=== PATIENT | male | born 1945 | race Caucasian/White ===

== ENCOUNTER 2018-06-10 13:35 | Inpatient (IN) | payer MEDICARE ==
[~2018-06-10] VITALS: Ht 167.6 cm; Wt 94.9 kg
[2018-06-10] MEDS: ALBUTEROL SULF 0.083% NEB SOLN 3 ML NEB NEB SCH ×2 (00:16→20:20)
--- OUTSIDE RECORDS SUMMARY | 2018-06-10 13:38 | XMS REPORT | Summary of Care ---
Author Author [facility] [place] Organization [facility] [place] Address Unknown Phone Unavailable Encounter HQ Maishar_amari(FIN) [id number] Date(s): 06/12/17 - 06/13/17 [facility] [place] [address] [address] [place] [id number] [phone] Vital Signs No data available for this section Problem List Condition Effective Dates Status Health Status Informant Allergy(Confirmed) Active Benign essential 09/07/14 Active hypertension1 Broken 02/03/15 - 02/13/15 Resolved leg(Confirmed)2 Clogged artery Resolved (heart)(Confirmed) Hyperlipidemia3 09/07/14 Active Insomnia4 09/07/14 Active Obesity(Confirmed) Active Pharyngitis(Confirme < 04/08/16 Resolved d) Tobacco dependence 09/07/14 Active syndrome5 Left trigger Resolved finger(Confirmed) 1Data migrated from [employer] on 11/02/14. 2Right leg 3Data migrated from [employer] on 11/02/14. 4Data migrated from [employer] on 11/02/14. 5Data migrated from [employer] on 11/02/14. Allergies, Adverse Reactions, Alerts Substance Reaction Severity Status iodine1 Active 1Data migrated from [employer] on11/03/14. Originally documented as IODINE. Medications atorvastatin 10 mg oral tablet See Instructions, TAKE 1 TABLET BY MOUTH AT BEDTIME, # 90 tab, 0 Refill(s), [place]: [place] [id number] Start Date: 06/12/17 Status: Ordered trazodone 50 mg oral tablet See Instructions, TAKE 1 TABLET BY MOUTH BEDTIME, # 30 tab, 1 Refill(s), Pharmac y: [facility] [id number] Start Date: 06/12/17 Stop Date: 08/20/17 Status: Completed trazodone 50 mg oral tablet See Instructions, # 30 tab, Refill(s) 3, TAKE 1 TABLET BY MOUTH AT BEDTIME, [place]id: [place] [id number] Start Date: 08/20/17 Status: Ordered Results No data available for this section Immunizations Given and Recorded Vaccine Date Status Refusal Reason influenza virus vaccine, inactivated1 02/20/15 Given 1Result Comment: [facility]: [id number] Procedures Procedure Date Related Diagnosis Body Site Status Appendectomy Completed Cholecystectomy Completed Hernia repair Completed Social History Social History Type Response Substance Abuse Use: None. Alcohol Current, Type Beer. Frequency: 1-2 times per week. Smoking Status Light tobacco smoker; Type: Cigars; Exposure to Tobacco Smoke None; Cigarette Smoking Last 365 Days Yes; Reg Smoking Cessation Counseling No; Tobacco use per day: 1; entered on: 07/30/17 Assessment and Plan No data available for this section
--- OUTSIDE RECORDS SUMMARY | 2018-06-10 13:38 | XMS REPORT | Summary of Care ---
Author Organization Unknown Address Unknown Phone Unavailable Encounter HQ Encntr_alias(FIN) [id number] Date(s): 09/07/14 - 09/07/14 [facility] [address] [address] [place] [phone] Discharge Disposition: Home Physician Attending: Janet Valencia MD Vital Signs No data available for this section Problem List No data available for this section Allergies, Adverse Reactions, Alerts No data available for this section Medications No data available for this section Results No data available for this section Immunizations No data available for this section Procedures No data available for this section Social History No data available for this section Assessment and Plan No data available for this section
--- OUTSIDE RECORDS SUMMARY | 2018-06-10 13:38 | XMS REPORT | Summary of Care ---
Author Author [facility] [place] Organization [facility] [place] Address Unknown Phone Unavailable Encounter HQ Luisitontr_amari(FIN) [id number] Date(s): 03/11/17 - 03/12/17 [facility] [place] [address] [address] [place] [phone] Vital Signs No data available for this section Problem List Condition Effective Dates Status Health Status Informant Allergy(Confirmed) Active Benign essential 09/07/14 Active hypertension1 Broken 02/03/15 - 02/13/15 Resolved leg(Confirmed)2 Clogged artery Resolved (heart)(Confirmed) Hyperlipidemia3 09/07/14 Active Insomnia4 09/07/14 Active Morbid obesity5 09/07/14 Active Pharyngitis(Confirme < 04/08/16 Resolved d) Tobacco dependence 09/07/14 Active syndrome6 Left trigger Active finger(Confirmed) 1Data migrated from [employer] on 11/02/14. 2Right leg 3Data migrated from [employer] on 11/02/14. 4Data migrated from [employer] on 11/02/14. 5Data migrated from [employer] on 11/02/14. 6Data migrated from [employer] on 11/02/14. Allergies, Adverse Reactions, Alerts Substance Reaction Severity Status iodine1 Active 1Data migrated from [employer] on11/03/14. Originally documented as IODINE. Medications trazodone 50 mg oral tablet See Instructions, # 30 tab, Refill(s) 1, TAKE 1 TABLET BY MOUTH BEDTIME, Pharmac y: [facility] [id number] Start Date: 03/11/17 Status: Ordered Results No data available for this section Immunizations Given and Recorded Vaccine Date Status Refusal Reason influenza virus vaccine, inactivated1 02/20/15 Given 1Result Comment: [facility]: [id number] Procedures Procedure Date Related Diagnosis Body Site Appendectomy Cholecystectomy Hernia repair Social History Social History Type Response Substance Abuse Use: None. Alcohol Current, Type Beer. Frequency: 1-2 times per week. Smoking Status Light tobacco smoker; Type: Cigars; Exposure to Tobacco Smoke None; Cigarette Smoking Last 365 Days Yes; Reg Smoking Cessation Counseling No; Tobacco use per day: 1; Assessment and Plan No data available for this section
--- OUTSIDE RECORDS SUMMARY | 2018-06-10 13:38 | XMS REPORT | Summary of Care ---
Author Author [facility] [place] Organization [facility] [place] Address Unknown Phone Unavailable Encounter HQ Maishar_amari(FIN) [id number] Date(s): 06/04/17 - 06/04/17 [facility] [place] [address] [address] [place] [id number] [phone] Discharge Disposition: Home or Self Care Attending Physician: Janet Valencia MD Vital Signs Most recent to 1 oldest [Reference Range]: Height 165.1 cm (06/04/17 10:00 AM) Temperature Oral 97.7 DegF [96.4-99.1 DegF] (06/04/17 10:00 AM) Blood Pressure 144/87 mmHg [90-140/60-90 mmHg] *HI* (06/04/17 10:00 AM) Respiratory Rate 14 BRMIN [14-20 BRMIN] (06/04/17 10:00 AM) Peripheral Pulse 71 bpm Rate [60-100 bpm] (06/04/17 10:00 AM) Weight 96.136 kg (06/04/17 10:00 AM) Body Mass Index 35.27 m2 (06/04/17 10:00 AM) Problem List Condition Effective Dates Status Health [...] [employer] on 11/02/14. 5Data migrated from [employer] on 11/02/14. Allergies, Adverse Reactions, Alerts Substance Reaction Severity Status iodine1 Active 1Data migrated from [employer] on11/03/14. Originally documented as IODINE. Medications Vitamin C Daily, 0 Refill(s) Start Date: 06/04/17 Status: Ordered Results No data available for this section Immunizations Given and Recorded Vaccine Date Status Refusal Reason influenza virus vaccine, inactivated1 02/20/15 Given 1Result Comment: [facility]: [id number] Procedures Procedure Date Related Diagnosis Body Site [...]
--- OUTSIDE RECORDS SUMMARY | 2018-06-10 13:38 | XMS REPORT | Summary of Care ---
Author Author ROMERO FOX M.D. Organization Unknown Address Unknown Phone Unavailable Care Team Providers Care Shredder Tender Name Role Phone ROMERO FOX M.D. Unavailable Unavailable Functional Status Name Dates Details Functional status health issues are not documented Status: Name Dates Details Cognitive status health issues are not documented Status: Problems Name Dates Details Trigger finger, left ring finger (727.03, M65.342) Status: Active Sprain of anterior talofibular ligament, right, initial encounter (845.09, S93.491A) Status: Active Medications Name Dates Details Medications not documented Allergies and Adverse Reactions Name Dates Details Allergy history not documented Status: Procedures Procedure Dates Details Procedures not documented Immunization Name Dates Details Immunizations not documented Social History Name Dates Details Unknown if ever smoked Vital Signs Date Test Result Details No Known Vitals to report Results Date Description Value Details Results not documented Plan of Care Name Dates Details Planned Observations Planned Goals not documented Interventions Provided Labs/Procedures/Imaging* [U] XRAY ANKLE MIN 3 VWS RIGHT [id number]; Done: 02 Apr 2016 * [U] XRAY HAND MIN 3 VWS LEFT [id number]; Done: 02 Apr 2016 Instructions Name Dates Details Instructions not documented Encounters Appointment; ROMERO FOX M.D. Encounter Diagnosis: Problem not documented On: 02-Apr-2016 13:30
--- OUTSIDE RECORDS SUMMARY | 2018-06-10 13:38 | XMS REPORT | Summary of Care ---
Author Author [facility]patient [facility] Organization [facility] Address Unknown Phone Unavailable Encounter HQ Encntr_alias(FIN) [id number] Date(s): 02/27/15 - 02/27/15 [facility] Outpatient [facility] [address] [address] [place] [phone] Discharge Disposition: Home Attending Physician: Janet Valencia MD Vital Signs No data available for this section Problem List Condition Effective Dates Status Health Status Informant Allergy(Confirmed) Active Benign essential 09/07/14 Active hypertension1 Clogged artery Resolved (heart)(Confirmed) Hyperlipidemia2 09/07/14 Active Insomnia3 09/07/14 Active Morbid obesity4 09/07/14 Active Tobacco dependence 09/07/14 Active syndrome5 1Data migrated from [employer] on 11/02/14. 2Data migrated from [employer] on 11/02/14. 3Data migrated from [employer] on 11/02/14. 4Data migrated from [employer] on 11/02/14. 5Data migrated from [employer] on 11/02/14. Allergies, Adverse Reactions, Alerts Substance Reaction Severity Status iodine1 Active 1Data migrated from [employer] on11/03/14. Originally documented as IODINE. Medications No data available for this section Results No data available for this section Immunizations Vaccine Date Refusal Reason influenza virus vaccine, inactivated1 02/20/15 1Result Comment: [facility]: [id number] Procedures Procedure Date Related Diagnosis Body Site Appendectomy Cholecystectomy Hernia repair Social History Social History Type Response Substance Abuse Use: None. Alcohol Current, Type Beer. Frequency: 1-2 times per week. Smoking Status Light tobacco smoker; Type: Cigars; Tobacco use per day: 1; Exposure to Tobacco Smoke None; Cigarette Smoking Last 365 Days Yes; Reg Smoking Cessation Counseling No Assessment and Plan No data available for this section
--- OUTSIDE RECORDS SUMMARY | 2018-06-10 13:38 | XMS REPORT | Summary of Care ---
Author Author [facility] [place] Organization [facility] [place] Address Unknown Phone Unavailable Encounter HQ Maishar_amari(FIN) [id number] Date(s): 07/30/17 - 07/30/17 [facility] [place] [address] [address] [place] [id number] [phone] Discharge Disposition: Home or Self Care Attending Physician: Janet Valencia MD Vital Signs Most recent to 1 oldest [Reference Range]: Height 167.64 cm (07/30/17 3:32 PM) Temperature Oral 98.0 DegF [96.4-99.1 DegF] (07/30/17 3:32 PM) Blood Pressure 144/82 mmHg [90-140/60-90 mmHg] *HI* (07/30/17 3:32 PM) Respiratory Rate 12 BRMIN [14-20 BRMIN] *LOW* (07/30/17 3:32 PM) Peripheral Pulse 61 bpm Rate [60-100 bpm] (07/30/17 3:32 PM) Weight 95.909 kg (07/30/17 3:32 PM) Body Mass Index 34.13 m2 (07/30/17 3:32 PM) Problem List Condition Effective Dates Status Health [...] [employer] on 11/02/14. 5Data migrated from [employer] on 11/02/14. Allergies, Adverse Reactions, Alerts Substance Reaction Severity Status iodine1 Active 1Data migrated from [employer] on11/03/14. Originally documented as IODINE. Medications Cipro 500 mg oral tablet 500 mg=1 tab, PO, Q12H, X 10 day, # 20 tab, 0 Refill(s), [facility] [place] [id number] Start Date: 07/30/17 Stop Date: 08/09/17 Status: Completed Results No data available for this section Immunizations Given and Recorded Vaccine Date Status Refusal Reason influenza virus vaccine, inactivated1 02/20/15 Given 1Result Comment: [facility]: [id number] Procedures Procedure Date Related Diagnosis Body Site [...]
--- OUTSIDE RECORDS SUMMARY | 2018-06-10 13:38 | XMS REPORT | Continuity of Care Document ---
Author Author [facility] Interface Address Unknown Phone Unavailable Problems Problem Status Onset Date Classification Date Reported Comments Source Pharyngitis Resolved 04/08/2016 Problem 11/05/2017 [facility] M25.561 - PAIN IN RIGHT KNEE Active 02/22/2015 [facility] Broken leg<sup>2</sup> Resolved 02/03/2015 Problem 11/05/2017 Right leg Medical [facility], [facility] Benign essential hypertension<sup>1</sup> Active 09/07/2014 Problem 11/05/2017 Data migrated from [employer] on 11/02/14. Medical [facility] Hyperlipidemia<sup>3</sup> Active 09/07/2014 Problem 11/05/2017 Data migrated from [employer] on 11/02/14. [facility] Insomnia<sup>4</sup> Active 09/07/2014 Problem 11/05/2017 Data migrated from [employer] on 11/02/14. [facility] Tobacco dependence syndrome<sup>5</sup> Active 09/07/2014 Problem 11/05/2017 Data migrated from [employer] on 11/02/14. [facility] Morbid obesity<sup>5</sup> Active 09/07/2014 Problem 03/15/2017 Data migrated from [employer] on 11/02/14. [facility] Tobacco dependence syndrome<sup>6</sup> Active 09/07/2014 Problem 03/15/2017 Data migrated from [employer] on 11/02/14. Medical [facility] Hyperlipidemia<sup>2</sup> Active 09/07/2014 Problem 03/02/2015 Data migrated from [employer] on 11/02/14. [facility] Insomnia<sup>3</sup> Active 09/07/2014 Problem 03/02/2015 Data migrated from [employer] on 11/02/14. [facility] Morbid obesity<sup>4</sup> Active 09/07/2014 Problem 03/02/2015 Data migrated from [employer] on 11/02/14. [facility] Allergy Active Problem 11/05/2017 [facility] Group, [facility] Clogged artery (<span ID="[id number]">Confirmed</span>) Resolved Problem 11/05/2017 [facility], [facility] Obesity Active Problem 11/05/2017 [facility] Group Left trigger finger Resolved Problem 11/05/2017 [facility] Right ankle pain Active Problem 03/25/2016 [facility] Right foot pain Active Problem 03/25/2016 [facility] Medications Medication Details Route Status Patient Instructions Ordering Provider Order Date Source Trazodone Hydrochloride 50 MG Oral Tablet See Instructions, # 30 tab, Refill(s) 3, TAKE 1 TABLET BY MOUTH AT BEDTIME, Pharmacy: [facility] [id number] Active 08/21/2017 [facility] Ciprofloxacin 500 MG Oral Tablet [Cipro] 500 mg=1 tab, PO, Q12H, X 10 day, # 20 tab, 0 Refill(s), Pharmacy: [facility] [id number] No Longer Active 07/30/2017 [facility] atorvastatin 10 mg oral tablet See Instructions, TAKE 1 TABLET BY MOUTH AT BEDTIME, # 90 tab, 0 Refill(s), Pharmacy: [facility] [id number] Active 06/12/2017 [facility] Trazodone Hydrochloride 50 MG Oral Tablet See Instructions, TAKE 1 TABLET BY MOUTH BEDTIME, # 30 tab, 1 Refill(s), Pharmacy: [facility] [id number] No Longer Active 06/12/2017 [facility] Vitamin C Daily, 0 Refill(s) Active 06/04/2017 [facility] Trazodone Hydrochloride 50 MG Oral Tablet See Instructions, # 30 tab, Refill(s) 1, TAKE 1 TABLET BY MOUTH BEDTIME, Pharmacy: [facility] [id number] Active 03/11/2017 [facility] Allergies, Adverse Reactions, Alerts Substance Category Reaction Severity Reaction type Status Date Reported Comments Source iodine<sup>1</sup> Assertion Drug allergy Active 09/07/2014 Data migrated from [employer] on11/03/14. Originally documented as IODINE. [facility] Immunizations Immunization Date Given Site Status Last Updated Comments Source influenza virus vaccine, inactivated<sup>1</sup> 02/20/2015 Right Deltoid completed David Result Comment: [facility]: [id number] Medical Group, JACQUELINE Cervantes Results Order Name Results Value Reference Range Date Interpretation Comments Source Foot 2 views DX Foot 2 views DX EXAMINATION: 1. Right ankle 2 views 2. Right foot 2 views HISTORY: Right ankle and foot pain; right heel spur FINDINGS: 2 view nonweightbearing examination of the right ankle and 2 view nonweightbearing examination of the right foot is performed without comparison. There are no acute fractures or dislocations. There is an old healed fracture of the distal right fibular shaft. The ankle mortise is symmetric. There is no widening of the distal tibiofibular syndesmosis. There is a type II accessory navicular. There is mild osteoarthritis at the 1st metatarsophalangeal joint. Mild dorsal spurring is noted along the talonavicular joint. The remaining joint spaces are normal There is no ankle effusion. There is a plantar calcaneal spur. There is heterotopic ossification at the Achilles insertion. There are no radiopaque foreign bodies identified. IMPRESSION: 1. No acute fracture or dislocation of the right ankle or foot. 2. Old healed distal right fibular shaft fracture. 3. 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 4. Right plantar calcaneal spur. 03/22/2016 - - Read by: Crescencio Mcmahon MD Dictated Date/time: 03/22/16 13:24 Electronically Signed by: Crescencio Mcmahon MD 03/22/16 13:26 FINAL REPORT [facility] Ankle 2 views DX Ankle 2 views DX EXAMINATION: 1. Right ankle 2 views 2. Right foot 2 views HISTORY: Right ankle and foot pain; right heel spur FINDINGS: 2 view nonweightbearing examination of the right ankle and 2 view nonweightbearing examination of the right foot is performed without comparison. There are no acute fractures or dislocations. There is an old healed fracture of the distal right fibular shaft. The ankle mortise is symmetric. There is no widening of the distal tibiofibular syndesmosis. There is a type II accessory navicular. There is mild osteoarthritis at the 1st metatarsophalangeal joint. Mild dorsal spurring is noted along the talonavicular joint. The remaining joint spaces are normal There is no ankle effusion. There is a plantar calcaneal spur. There is heterotopic ossification at the Achilles insertion. There are no radiopaque foreign bodies identified. IMPRESSION: 1. No acute fracture or dislocation of the right ankle or foot. 2. Old healed distal right fibular shaft fracture. 3. 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 4. Right plantar calcaneal spur. 03/22/2016 - - Read by: Crescencio Mcmahon MD Dictated Date/time: 03/22/16 13:24 Electronically Signed by: Crescencio Mcmahon MD 03/22/16 13:26 FINAL REPORT [facility]erv[facility] Knee wo contrast MRI Knee wo contrast MRI EXAMINATION: MRI of the right knee without contrast. HISTORY: Right knee pain; tibial fracture FINDINGS: There are no radiographs available for review. Multiplanar, multisequence magnetic resonance imaging of the right knee is performed with an extremity coil without contrast. Menisci: Medial: There is a radial tear at the posterior root of the medial meniscus. There is also horizontal intrameniscal hyperintense signal was extends to the posteromedial meniscocapsular junction, but does not extend to the articular surface, which may represent a horizontal component from the radial tear extending from the posterior root or intrameniscal degeneration. Lateral: The anterior horn, body, and posterior horn are intact. Ligaments: The cruciate and collateral ligaments are intact. Extensor mechanism: The extensor mechanism is intact. Muscles: There is edema within the popliteus muscle and muscles subjacent to the proximal medial tibia. Cartilage: Within the medial compartment, there is no focal chondrosis. Within the lateral and patellofemoral compartments, there is no focal chondrosis or subchondral marrow edema. Bone: There is a well-defined, nondisplaced, hypointense subchondral insufficiency fracture of the medial tibial plateau measuring approximately 1.6 x 1.4 cm in left to right and anteroposterior dimensions respectively with surrounding marrow edema. There are no fractures of the visualized distal femur, visualized proximal fibula, or patella. Soft tissues: There is subcutaneous edema superficial to the patella and patellar tendon and soft tissue edema along the anteromedial aspect of the proximal medial tibia. There is a trace knee effusion with tiny Snider's cyst. IMPRESSION: 1. Radial tear at the posterior root of the right knee medial meniscus with horizontal intrameniscal hyperintense signal extending to the posteromedial meniscocapsular junction, but not to the articular surface which may represent a horizontal component from the radial tear extending from the posterior root or intrameniscal degeneration. 2. Well-defined, nondisplaced, hypointense subchondral insufficiency fracture of the right medial tibial plateau with surrounding marrow edema. 3. Edema within the right popliteus muscle and muscle subjacent to the proximal medial tibia, likely reactive. 4. Trace right knee effusion with tiny right knee Snider's cyst. 5. Subcutaneous edema superficial to the patella and patellar tendon. 6. Intact right knee cruciate and collateral ligaments without right knee chondrosis. 02/27/2015 - - Read by: Crescencio Mcmahon MD Dictated Date/time: 02/27/15 13:23 Electronically Signed by: Crescencio Mcmahon MD 02/27/15 13:40 [facility] Vital Signs Vital Sign Value Date Comments Source Height 167.64 cm 07/30/2017 Medical Group Respitory Rate 12 07/30/2017 Medical Group BMI Calculated 34.13 07/30/2017 Medical Group Temperature Oral (F) 98.0 F 07/30/2017 Medical Group Weight 95.909 07/30/2017 Medical Group Heart Rate 61 07/30/2017 Medical Group Systolic (mm Hg) 144 07/30/2017 Medical Group Diastolic (mm Hg) 82 07/30/2017 Medical [facility] Weight 96.136 06/04/2017 Medical Group Height 165.1 cm 06/04/2017 Medical Group BMI Calculated 35.27 06/04/2017 Medical Group Systolic (mm Hg) 144 06/04/2017 [facility] Group Diastolic (mm Hg) 87 06/04/2017 Medical Group Heart Rate 71 06/04/2017 Medical Group Temperature Oral (F) 97.7 F 06/04/2017 Medical Group Respitory Rate 14 06/04/2017 Medical Group Encounters Location Location Details Encounter Type Encounter Number Reason For Visit Attending Provider ADM Date DC Date Status Source [facility] [id number] Onofre Zuniga 09/07/2014 09/08/2014 MH [facility] Outpatient [id number] ONOFRE ZUNIGA 10/31/2014 Active [facility] Out[facility] [id number] ONOFRE ZUNIGA 10/31/2014 [facility] [id number] ONOFRE ZUNIGA 02/20/2015 Active [facility] [id number] Onofre Zuniga 02/27/2015 02/28/2015 [facility] Outpatient [id number] ONOFRE ZUNIGA 04/25/2015 Active [facility] [id number] ONOFRE ZUNIGA 03/22/2016 Active [facility] [id number] Onofre Zuniga 03/22/2016 03/23/2016 [facility] Outpatient [id number] ONOFRE ZUNIGA 04/08/2016 Active [facility] [id number] ONOFRE ZUNIGA 09/17/2016 Active [facility] [id number] ONOFRE ZUNIGA 01/24/2017 Active [facility] Phone Message [id number] 03/11/2017 03/13/2017 Medical Group Outpatient [id number] ONOFRE ZUNIGA 06/04/2017 Active [facility] Outpatient [id number] Onofre Zuniga 06/04/2017 06/05/2017 Medical Group [facility] [place] Phone Message [id number] 06/12/2017 06/14/2017 Medical Group Outpatient [id number] ONOFRE ZUNIGA 07/30/2017 Active [facility] Outpatient [id number] Onofre Zuniga 07/30/2017 07/31/2017 Medical Group Outpatient [id number] ONOFRE ZUNIGA 12/02/2017 Active [facility] Outpatient [id number] ONOFRE ZUNIGA 03/11/2018 Active [facility] Outpatient [id number] ONOFRE ZUNIGA 03/30/2018 Active [facility] Procedures Procedure Code Date Perfomer Comments Source Appendectomy [id number] Medical Group Cholecystectomy [id number] Medical [facility] Hernia repair [id number] [facility] Appendectomy [id number] [facility] Cholecystectomy [id number] JACQUELINE Cervantes Hernia repair [id number] JACQUELINE Cervantes
--- OUTSIDE RECORDS SUMMARY | 2018-06-10 13:38 | XMS REPORT | Summary of Care ---
Author Author [facility] Organization [facility] Address Unknown Phone Unavailable Encounter HQ Jac_amari(FIN) [id number] Date(s): 03/22/16 - 03/22/16 [facility] [address], [place] [phone]- [phone] Discharge Disposition: Home or Self Care Attending Physician: Janet Valencia MD Vital Signs No data available for this section Problem List Condition Effective Dates Status Health Status Informant Allergy(Confirmed) Active Right ankle Active pain(Confirmed) Benign essential 09/07/14 Active hypertension1 Broken 02/03/15 - 02/13/15 Resolved leg(Confirmed)2 Clogged artery Resolved (heart)(Confirmed) Right foot Active pain(Confirmed) Hyperlipidemia3 09/07/14 Active Insomnia4 09/07/14 Active Morbid obesity5 09/07/14 Active Tobacco dependence 09/07/14 Active syndrome6 Left trigger [...] virus vaccine, inactivated1 02/20/15 Given 1Result Comment: [facility]: [id number] Procedures Procedure Date Related Diagnosis Body Site [...]
[2018-06-10] MEDS ORDERED: LEVALBUTEROL HCL SOLN NEBU 1.25 MG/3 ML NEB INH ONE (14:30)
[2018-06-10] MEDS ORDERED: METHYLPREDNISOLONE SOD SUCC 125 MG/2ML VIAL IV ONE (14:30)
[2018-06-10] MEDS ORDERED: ACETAMINOPHEN/CODEINE ELIX 120-12 MG/5 ML UDC PO NR (14:30)
[2018-06-10] MEDS ORDERED: IPRATROPIUM BROMIDE 0.02% 2.5 ML NEB NEB ONE (14:30)
[2018-06-10] MEDS ORDERED: ASPIRIN 81 MG CHEW TAB PO ONE ×2 (14:30→17:30)
[2018-06-10] MEDS ORDERED: CEFTRIAXONE SOD 1 GM/NS 50 ML 50 ML IV NR (14:30)
--- NOTE | 2018-06-10 14:52 | NUR ---
CALLED RESPIRATORY FOR NEB TXS
[2018-06-10 15:01] LABS: BASOPHILS % 0.7 % (0.0-1.0); EOSINOPHILS # (AUTO) 0.2 (0.0-0.4); EOSINOPHILS % 2.5 % (0.0-6.0); HEMOGLOBIN 17.8 g/dL (14.0-18.0); LYMPHOCYTES # (AUTO) 1.3 (1.0-3.2); LYMPHOCYTES % 21.5 % (18.0-39.1); MEAN CORPUSCULAR HEMOGLOBIN 32.2 pg (28-32); MEAN CORPUSCULAR HGB CONC 34.2 g/dL (31-35); MONOCYTES # (AUTO) 0.4 (0.2-0.8); MONOCYTES % 7.5 % (4.4-11.3); NEUTROPHILS % 67.6 % (38.7-80.0); PLATELET COUNT 160 x10e3/uL (140-360); RED BLOOD COUNT 5.53 x10e6/uL (4.3-5.7); RED CELL DISTRIBUTION WIDTH 12.4 % (11.7-14.4)
[2018-06-10 15:10] LABS: INR 0.94; PROTHROMBIN TIME 13.4 seconds (11.9-14.5)
[2018-06-10 15:11] LABS: PARTIAL THROMBOPLASTIN TIME 36.5 seconds (23.8-35.5)
[2018-06-10 15:18] LABS: ALANINE AMINOTRANSFERASE 24 IU/L (0-55); ALBUMIN 4.1 g/dL (3.5-5.0); ALBUMIN/GLOBULIN RATIO 1.5 (0.8-2.0); ALKALINE PHOSPHATASE 68 IU/L (40-150); ANION GAP 16.1 mmol/L (8-16); BLOOD UREA NITROGEN 18 mg/dL (7-26); BUN/CREATININE RATIO 19 (6-25); CALCIUM 9.5 mg/dL (8.4-10.2); CARBON DIOXIDE 24 mmol/L (22-29); CHLORIDE 103 mmol/L (98-107); CREATINE KINASE 38 IU/L (30-200); CREATININE, SERUM 0.96 mg/dL (0.72-1.25); EST GLOMERULAR FILTRATION RATE > 60 ML/MIN (60-); GLUCOSE 115 mg/dL (74-118); POTASSIUM 4.1 mmol/L (3.5-5.1); SODIUM 139 mmol/L (136-145)
[2018-06-10 15:36] LABS: CLARITY,URINE CLEAR (CLEAR); COLOR,URINE YELLOW (YELLOW)
[2018-06-10 15:37] LABS: BILIRUBIN,URINE NEGATIVE (NEGATIVE); KETONES,URINE NEGATIVE (NEGATIVE); LEUKOCYTE ESTERASE ,URINE NEGATIVE (NEGATIVE); NITRITE,URINE NEGATIVE (NEGATIVE); PROTEIN,URINE DIPSTICK 2+ (NEGATIVE); URINE UROBILINOGEN 0.2 mg/dL (0.2 - 1)
[2018-06-10 15:56] LABS: AMORPHOUS SEDIMENT,URINE FEW (FEW); BACTERIA,URINE MODERATE /HPF; EPITHELIAL CELLS,URINE MODERATE /LPF; MUCUS,URINE FEW (RARE)
[2018-06-10] MEDS ORDERED: ASPIR 8181 MG PO (16:25)
[2018-06-10] MEDS ORDERED: TRAZODONE HCL50 MG PO (16:25)
[2018-06-10] MEDS ORDERED: ATORVASTATIN (16:25)
[2018-06-10] MEDS ORDERED: STOOL SOFTENER PO (16:25)
[2018-06-10] MEDS ORDERED: VITAMIN C (16:25)
[2018-06-10] MEDS ORDERED: VITAMIN E (16:25)
[2018-06-10] MEDS ORDERED: VITAMIN D (16:25)
--- NOTE | 2018-06-10 16:34 | NUR ---
PATIENT DOES NOT HAVE HIS MED LIST WITH HIM BUT HE KNEW THE NAMES OF HIS MEDS BUT NOT THE DOSAGES. I ENTERED THEM IN RECONCILE MEDS THE BEST I COULD. PT SAID HE TAKES A BLOOD PRESSURE PILL THAT STARTS WITH AN "H" BUT COULDN'T REMEMBER THE NAME.
--- NOTE | 2018-06-10 16:49 | Diagnostic Imaging Report ---
EXAM: CHEST SINGLE (PORTABLE), AP Portable DATE: 06/10/2018 Time stamp on exam: 4:10 PM INDICATION: Chest pain with dyspnea COMPARISON: None FINDINGS: LINES/TUBES: None LUNGS: Stranding density in the right lower lobe compatible with pneumonia PLEURA: No effusions or pneumothorax. HEART AND MEDIASTINUM: Normal size and contour. BONES AND SOFT TISSUES: No acute findings. Degenerative changes at both AC joints. IMPRESSION: Right lower lobe pneumonia Signed by: Dr. Shane Lopez DO on 06/10/2018 4:45 PM
[2018-06-10] MEDS ORDERED: CEFTRIAXONE SOD 1 GRAM/0.9% SOD CHL 50ML BAG IV SCH (17:30)
[2018-06-10] MEDS ORDERED: ALBUTEROL SULF 0.083% NEB SOLN 3 ML NEB NEB SCH (17:30)
--- OUTSIDE RECORDS SUMMARY | 2018-06-10 17:32 | XMS REPORT ---
Author Author [facility] Address Unknown Phone Unavailable Care Team Providers Care Solar Hot Water Installer Name Role Phone Coby HANKINS Unavailable Unavailable Problems This patient has no known problems. Allergies, Adverse Reactions, Alerts This patient has no known allergies or adverse reactions. Medications This patient has no known medications. Results Test Description Test Time Test Comments Text Results Atomic Results Result Comments CHEST SINGLE (PORTABLE) 2018-06-10 16:44:00 [place] [address] Patient Name: REY KAISER MR #: [id number] : 1945 Age/Sex: 73/M Req #: [id number] Adm Physician: Ordered by: GUERRERO HANKINS MD Report #: [id number] Location: ER Room/Bed: Procedure: [id number] DX/CHEST SINGLE (PORTABLE) Exam Date: Exam Time: REPORT STATUS: Signed EXAM: CHEST SINGLE (PORTABLE), AP Portable DATE: 06/10/2018 T hari stamp on exam: 4:10 PM INDICATION: Chest pain with dyspnea COMPARISON: None FINDINGS: LINES/TUBES: None LUNGS: Stranding density in the right lower lobe compatible with pneumonia PLEURA: No effusions or pneumothorax. HEART AND MEDIASTINUM: Normal size and contour. BONES AND SOFT TISSUES: No acute findings. Degenerative changes at both AC joints. IMPRESSION: Right lower lobe pneumonia Signed by: Dr. Berna Lopez DO on 06/10/2018 4:45 PM Dictated By: BERNA LOPEZ DO [id number] Transcribed By: JASMINA on 06/10/18 [id number] COPY TO: GUERRERO HANKINS MD
[2018-06-10] MEDS ORDERED: IPRATROPIUM BROMIDE 0.02% 2.5 ML NEB NEB SCH (18:00)
--- NOTE | 2018-06-10 18:28 | NUR ---
HANDOFF REPORT REC'D FROM ER NURSE, EMELY PUENTE RN.
--- NOTE | 2018-06-10 18:29 | NUR ---
REPORT CALLED TO CHRISTINE PIRES FOR ADMIT TO ROOM 210. SHE ASKED IF WE COULD BRING THE PATIENT AT 7:15 PM
[2018-06-10] MEDS: SODIUM CHLORIDE 0.9% 1000ML 1,000 ML IV SCH (18:43)
[2018-06-10] MEDS: CEFTRIAXONE SOD 1 GM/NS 50 ML 50 ML IV SCH (18:44)
[2018-06-10] MEDS: AZITHROMYCIN 500MG/NS 250 ML 250 ML IV SCH (18:44)
[2018-06-10] MEDS: IPRATROPIUM BROMIDE 0.02% 2.5 ML NEB NEB SCH (20:20)
--- NOTE | 2018-06-10 20:30 | NUR ---
received pt from er to room 210, AAOx4, resp even and unlabored, on O2 at 2L via NC, no c/o pain or discomfort, skin intact, uses cane for ambulation at times, able to verbalize needs, bed in lowest and locked position, bed alarm on, call light in reach
[2018-06-10 20:41] VITALS: BP 171/79
--- NOTE | 2018-06-10 21:00 | NUR ---
order to place pt on teletypesetter monitor clarified with yard warehouse worker and ER, pt to only have bedside continuous pulse ox, Dr. Magallon called and message left with answering service.
[2018-06-10 23:52] VITALS: BP 125/63
[2018-06-11] VITALS (7 sets, daily range): BP systolic 114–184; BP diastolic 57–84
[2018-06-11] MEDS: IPRATROPIUM BROMIDE 0.02% 2.5 ML NEB NEB SCH ×4 (03:28→19:49)
[2018-06-11] MEDS: ALBUTEROL SULF 0.083% NEB SOLN 3 ML NEB NEB SCH ×5 (03:28→19:49)
[2018-06-11] MEDS ORDERED: CLONIDINE HCL 0.1 MG TAB PO PRN (03:45)
[2018-06-11] MEDS ORDERED: TRAZODONE HCL 50 MG TAB PO PRN (04:30)
--- NOTE | 2018-06-11 04:45 | NUR ---
Dr. Naun mathis, no order for telemetry
[2018-06-11 07:48] LABS: CREATINE KINASE 35 IU/L (30-200)
[2018-06-11] MEDS: GUAIFENESIN/DEXTROMETHORPHAN LIQD 5 ML UDC NG PRN ×2 (08:00→17:45)
[2018-06-11] MEDS: SODIUM CHLORIDE 0.9% 1000ML 1,000 ML IV SCH ×3 (08:01→23:21)
[2018-06-11] MEDS: ASPIRIN 81 MG CHEW TAB PO SCH (08:01)
--- NOTE | 2018-06-11 14:50 | NUR ---
CASE MANAGEMENT ASSESSMENT Motor Pool Driver to bedside to discuss plan of care with patient/family. CM/SW role and care transitions discussed. Anticipated discharge plan discussed along with duration of care. CM/SW discussed patients right to make decisions in care. CM/SW work hours given. Patient lives: with nephew Armen Lala Admit/Transfer: thru ED Hospital/ER visits since last admit: 1 year ago for trigger finger repair. no ED visits since then POA/Emergency contact: Armen Lala [phone] Current/Previous Home Health: none PCP/Follow-up Care: Dr. Janet Valencia - pt advised to follow up with MD within 7 days of discharge. Pt states he will call and schedule an appointment Current/Previous DME: none Medications (referring to index hospitalization or the first time you were in the hospital) a. Were changes made in your medications when you were in the hospital on [date of index hospitalization]? n/a b. Did you understand the changes? n/a c. Were you able to obtain your new medications right away? n/a d. Were you able to take your medications like the doctor wanted you to? n/a e. Did the hospital give you an accurate, easy to understand list of medications when you left? n/a Scale of 1-10 how comfortable does patient feel with disease management in outpatient settin Other Services: none Employment Status: owns [employer] Areas of Concerns: pna Referral Needs: none Education Needs: medical management IMM/CHAN given and signed (if applicable): IMM given in ED Goal for discharge: home CM/SW left business card at the bedside with contact information. Name and number was also written on the patients whiteboard. Patient verbalized understanding of discussion. CM will follow-up with ongoing discharge and transition of care needs.
[2018-06-11 16:44] LABS: CREATINE KINASE MB 1.2 ng/mL (0-5.0)
[2018-06-11] MEDS: AZITHROMYCIN 500MG/NS 250 ML 250 ML IV SCH (17:45)
[2018-06-11] MEDS ORDERED: ATORVASTATIN CA10 MG PO (18:19)
[2018-06-11] MEDS ORDERED: HYDROCHLOROTHIA25 MG PO (18:19)
[2018-06-11] MEDS: CEFTRIAXONE SOD 1 GM/NS 50 ML 50 ML IV SCH (20:54)
[2018-06-12] VITALS (7 sets, daily range): BP systolic 122–160; BP diastolic 61–83
[2018-06-12] MEDS: ALBUTEROL SULF 0.083% NEB SOLN 3 ML NEB NEB SCH ×6 (00:05→19:35)
[2018-06-12] MEDS: IPRATROPIUM BROMIDE 0.02% 2.5 ML NEB NEB SCH ×4 (00:05→19:35)
--- NOTE | 2018-06-12 08:50 | NUR ---
IMM letter delivered and explained to pt. He verbalized understanding. Signed copy placed in chart. Copy to pt. Pt stated Dr. Magallon anticipates discharge on Friday.
[2018-06-12] MEDS: SODIUM CHLORIDE 0.9% 1000ML 1,000 ML IV SCH ×2 (09:21→19:11)
[2018-06-12] MEDS: ASPIRIN 81 MG CHEW TAB PO SCH (09:25)
--- NOTE | 2018-06-12 09:25 | NUR ---
Pt received resting in bed. Alert and oriented x4 in good spirits. Oriented to staff and surroundings. Encouraged to press call macias if help needed. All meds given as ordered. Call macias within reach. Emotional support given. Will monitor
[2018-06-12] MEDS: GUAIFENESIN/DEXTROMETHORPHAN LIQD 5 ML UDC NG PRN ×2 (09:42→17:30)
[2018-06-12] MEDS: AZITHROMYCIN 500MG/NS 250 ML 250 ML IV SCH (16:43)
[2018-06-12] MEDS: CEFTRIAXONE SOD 1 GM/NS 50 ML 50 ML IV SCH (17:22)
[2018-06-13] MEDS: IPRATROPIUM BROMIDE 0.02% 2.5 ML NEB NEB SCH ×3 (00:10→13:00)
[2018-06-13] MEDS: ALBUTEROL SULF 0.083% NEB SOLN 3 ML NEB NEB SCH ×5 (00:10→15:00)
[2018-06-13 01:05] VITALS: BP 130/80
[2018-06-13] MEDS: SODIUM CHLORIDE 0.9% 1000ML 1,000 ML IV SCH (05:21)
[2018-06-13 05:56] VITALS: BP 132/74
--- NOTE | 2018-06-13 07:41 | Progress Note ---
DATE: SUBJECTIVE: The patient is here for right lower lobe pneumonia. Currently, the patient continues to have some chills, also has cough continuously, afebrile this time, otherwise asymptomatic and no complaints. OBJECTIVE VITAL SIGNS: Temperature is 96.4, pulse is 71, respirations of 18, blood pressure is 132/74, pulse oximetry on room air is 98%. HEENT: Normocephalic and atraumatic. Pupils are reactive to light and accommodation. CVS: S1 and S2 normal. Regular rate and rhythm. ABDOMEN: Nontender and nondistended. LUNGS: Positive for rhonchi on the right side. EXTREMITIES: No clubbing, no cyanosis, and trace edema. LABORATORY VALUES: From 13, hemoglobin of 17 and hematocrit of 52. Chemistries were within normal limits. Coags were normal. Chest x-ray showed right lower lobe pneumonia. MEDICATIONS: The patient is currently on albuterol-Atrovent treatments, guaifenesin for cough, azithromycin, Rocephin, and the patient is on trazodone. ASSESSMENT: Pneumonia. PLAN: To check his CBC and CMP today. Repeat another chest x-ray. We will continue to monitor the patient. As the labs are normal and the x-ray looks better, we can discharge the patient today on ProAir and Levaquin. Further recommendations per clinical course. We will continue to monitor the patient. Job#: [id number] PSO
[2018-06-13 07:50] VITALS: BP 132/74
[2018-06-13] MEDS: ASPIRIN 81 MG CHEW TAB PO SCH (07:50)
[2018-06-13] MEDS: GUAIFENESIN/DEXTROMETHORPHAN LIQD 5 ML UDC NG PRN (07:50)
--- NOTE | 2018-06-13 07:50 | NUR ---
Pt received resting in bed. All meds given as ordered. Emotional support given. Will monitor
[2018-06-13 07:51] VITALS: BP 131/68
[2018-06-13 08:11] LABS: BASOPHILS % 0.8 % (0.0-1.0); EOSINOPHILS # (AUTO) 0.3 (0.0-0.4); EOSINOPHILS % 5.2 % (0.0-6.0); HEMATOCRIT 46.3 % (38.2-49.6); HEMOGLOBIN 15.8 g/dL (14.0-18.0); LYMPHOCYTES # (AUTO) 1.6 (1.0-3.2); LYMPHOCYTES % 32.9 % (18.0-39.1); MEAN CORPUSCULAR HEMOGLOBIN 32.6 pg (28-32); MEAN CORPUSCULAR HGB CONC 34.1 g/dL (31-35); MEAN CORPUSCULAR VOLUME 95.7 fL (81-99); MONOCYTES # (AUTO) 0.3 (0.2-0.8); NEUTROPHILS # (AUTO) 2.8 (2.1-6.9); NEUTROPHILS % 55.9 % (38.7-80.0); PLATELET COUNT 143 x10e3/uL (140-360); RED BLOOD COUNT 4.84 x10e6/uL (4.3-5.7); RED CELL DISTRIBUTION WIDTH 12.6 % (11.7-14.4)
--- NOTE | 2018-06-13 08:16 | Diagnostic Imaging Report ---
EXAMINATION: CHEST 2 VIEWS INDICATION: ^PNEUMONIA COMPARISON: Chest radiograph 06/10/2018 FINDINGS: PA and lateral views TUBES and LINES: None. LUNGS: Lungs are well inflated. Persistent reticular opacities in the right lower lobe. No new consolidations. PLEURA: No pleural effusion or pneumothorax. HEART AND MEDIASTINUM: The cardiomediastinal silhouette is unremarkable. BONES AND SOFT TISSUES: No acute osseous lesion. Soft tissues are unremarkable. UPPER ABDOMEN: No free air under the diaphragm. IMPRESSION: Persistent reticular opacities in the right lower lobe likely due to resolving pneumonia. Recommend follow-up chest x-ray in 4-6 weeks. If findings persist, then recommend CT chest without contrast for better evaluation of the findings. Signed by: Dr. Brie Hsu M.D. on 06/13/2018 8:13 AM
[2018-06-13 08:29] LABS: ANION GAP 17.3 mmol/L (8-16); BLOOD UREA NITROGEN 12 mg/dL (7-26); BUN/CREATININE RATIO 13 (6-25); CALCIUM 9.2 mg/dL (8.4-10.2); CARBON DIOXIDE 24 mmol/L (22-29); CHLORIDE 105 mmol/L (98-107); CREATININE, SERUM 0.92 mg/dL (0.72-1.25); EST GLOMERULAR FILTRATION RATE > 60 ML/MIN (60-); GLUCOSE 132 mg/dL (74-118); POTASSIUM 4.3 mmol/L (3.5-5.1); SODIUM 142 mmol/L (136-145)
[2018-06-13] MEDS ORDERED: LEVAQUIN500 MG PO (10:11)
--- NOTE | 2018-06-13 10:37 | NUR ---
Pt for discharge. Instructions given regarding meds, diet, activities, and follow up appointment with PCP. Pt verbalized understanding of teaching. Awaiting nephew for cherry picker operator
[2018-06-13 11:49] VITALS: BP 157/83
--- NOTE | 2018-06-13 11:56 | NUR ---
Pt left via wheelchair to private car
== END 2018-06-13 14:30 | disposition home or self-care (01) | DRG 195 ==
LOC: ER 13:35 → ERHOLD 17:26 → MED/SURG2 20:09
PROVIDERS: ADMIT Internal Medicine; ATTEND Internal Medicine
DX: J18.9 Pneumonia, unspecified organism (principal); I10 Essential (primary) hypertension; E78.5 Hyperlipidemia, unspecified
CPT/HCPCS: 36415; 71045; 71046; 80048; 80053; 81001; 82550; 82553; 83605; 83880; 84484; 85025; 85610; 85730; 87040; 87086; 93005; 94640; 99284; J0456; J0696; J2930; J7030

== ENCOUNTER 2018-06-17 13:37 | Inpatient (IN) | payer MEDICARE ==
[~2018-06-17] VITALS: Ht 165.1 cm; Wt 91.9 kg
[~2018-06-17 13:37] MED LIST: ASPIR 8181 MG PO; ATORVASTATIN; ATORVASTATIN CA10 MG PO; HYDROCHLOROTHIA25 MG PO; LEVAQUIN500 MG PO; STOOL SOFTENER PO; TRAZODONE HCL50 MG PO; VITAMIN C; VITAMIN D; VITAMIN E
--- NOTE | 2018-06-17 13:59 | NUR ---
RECEIVED REPORT FROM SHITAL PIRES TO ASSUME PATIENT'S CARE. PT TAKEN TO ER #3 VIA W/C
[2018-06-17 15:23] LABS: BASOPHILS % 0.4 % (0.0-1.0); EOSINOPHILS # (AUTO) 0.1 (0.0-0.4); EOSINOPHILS % 0.8 % (0.0-6.0); HEMATOCRIT 51.8 % (38.2-49.6); HEMOGLOBIN 18.4 g/dL (14.0-18.0); MEAN CORPUSCULAR HEMOGLOBIN 32.5 pg (28-32); MEAN CORPUSCULAR HGB CONC 35.5 g/dL (31-35); MEAN CORPUSCULAR VOLUME 91.5 fL (81-99); MONOCYTES # (AUTO) 0.5 (0.2-0.8); MONOCYTES % 5.4 % (4.4-11.3); NEUTROPHILS # (AUTO) 8.3 (2.1-6.9); NEUTROPHILS % 83.1 % (38.7-80.0); PLATELET COUNT 193 x10e3/uL (140-360); RED BLOOD COUNT 5.66 x10e6/uL (4.3-5.7); RED CELL DISTRIBUTION WIDTH 12.1 % (11.7-14.4)
[2018-06-17 15:36] LABS: ALANINE AMINOTRANSFERASE 34 IU/L (0-55); ALBUMIN 4.3 g/dL (3.5-5.0); ALBUMIN/GLOBULIN RATIO 1.7 (0.8-2.0); ALKALINE PHOSPHATASE 75 IU/L (40-150); AMYLASE 50 U/L (25-125); ANION GAP 17.6 mmol/L (8-16); BLOOD UREA NITROGEN 22 mg/dL (7-26); BUN/CREATININE RATIO 19 (6-25); CALCIUM 10.1 mg/dL (8.4-10.2); CARBON DIOXIDE 22 mmol/L (22-29); CHLORIDE 99 mmol/L (98-107); CREATINE KINASE 32 IU/L (30-200); CREATININE, SERUM 1.13 mg/dL (0.72-1.25); EST GLOMERULAR FILTRATION RATE > 60 ML/MIN (60-); GLUCOSE 133 mg/dL (74-118); LIPASE 33 U/L (8-78); POTASSIUM 3.6 mmol/L (3.5-5.1); SODIUM 135 mmol/L (136-145)
[2018-06-17 15:38] LABS: INR 0.94; PROTHROMBIN TIME 13.4 seconds (11.9-14.5)
[2018-06-17 15:39] LABS: PARTIAL THROMBOPLASTIN TIME 40.6 seconds (23.8-35.5)
--- NOTE | 2018-06-17 16:02 | Diagnostic Imaging Report ---
History:Dizziness Comparison studies:None Technique: Axial images were obtained from the skull base to the vertex. Coronal and sagittal images reconstructed from the axial data. Intravenous contrast: None Dose modulation, iterative reconstruction, and/or weight based adjustment of the mA/kV was utilized to reduce the radiation dose to as low as reasonably achievable. Findings: Scalp/skull: No abnormalities. Extra-axial spaces: No masses. No fluid collections. Brain sulci: Mildly prominent. Ventricles: Mild compensatory dilatation. No hydrocephalus. Parenchyma: Few hypodensities in the supratentorial white matter are small vessel ischemic changes. No masses, hemorrhage, acute or chronic cortical vascular insults. Sellar/suprasellar region: No abnormalities. Craniocervical junction: Patent foramen magnum. No Chiari one malformation. Incidental findings: Atherosclerotic calcifications in the carotid siphons and bilateral vertebral arteries . Impression: No acute abnormalities. Chronic findings: 1. Mild generalized volume loss. 2. Mild supratentorial white matter small vessel ischemic changes. Signed by: DR Nabil Mcclellan M.D. on 06/17/2018 3:59 PM
--- NOTE | 2018-06-17 16:34 | Diagnostic Imaging Report ---
EXAM: CHEST SINGLE (PORTABLE) DATE: 06/17/2018 1:48 PM INDICATION: Vomiting, pneumonia COMPARISON: Chest x-ray, 06/13/2018 FINDINGS: Lines and tubes: None Heart size normal. No focal pulmonary opacity, pleural effusion or pneumothorax. Stable reticular opacities in the right lower lobe. Upper abdomen unremarkable. No acute bony abnormality. IMPRESSION: Stable reticular opacities in the right lower lobe that may represent resolving pneumonia. No new consolidation or pleural effusion. Signed by: Dr. Chauncey Young M.D. on 06/17/2018 4:31 PM
[2018-06-17] MEDS: SODIUM CHLORIDE 0.9% 1000ML 1,000 ML IV SCH (16:40)
--- NOTE | 2018-06-17 17:00 | NUR ---
HAVE REPEATEDLY TRIED TO GET PT TO GIVE A URINE SAMPLE. HE HAS STILL BEEN UNABLE TO URINATE. HE HAS TRIED THE URINAL AND THE RESTROOM MULTIPLE TIMES. DR. REYES AND ASHA STAFFORD ARE AWARE. ERP WANTED A BLADDER SCAN BUT THE BLADDER SCANNER IS NOT WORKING NOW
--- NOTE | 2018-06-17 18:49 | NUR ---
PATIENT TRIED AGAIN TO URINATE BUT WAS STILL UNABLE. A CT WAS ORDERED AND PATIENT IS DRINKING ORAL CONTRAST AT THIS TIME.
--- NOTE | 2018-06-17 20:06 | NUR ---
dontae master deputy [employer] security informed of mulitfocal pvcs
--- NOTE | 2018-06-17 21:35 | NUR ---
EKG WAS DONE, RBB, WITH FREQUENT PVCS, PATIENT IS NOT SHOWING CARDIAC DISTRESS SYMPTOMS. ASHA STAFFORD WAS NOTIFIED AND REVIEWED EKG
--- NOTE | 2018-06-17 22:02 | Diagnostic Imaging Report ---
EXAM: CT Abdomen and Pelvis WITHOUT contrast INDICATION: ^abdominal pain and diarrhea ^[id number] ^2020 ^Y COMPARISON: None. TECHNIQUE: Abdomen and pelvis were scanned utilizing a multidetector helical scanner from the lung base to the pubic symphysis without administration of IV contrast. Absence of intravenous contrast decreases sensitivity for detection of focal lesions and vascular pathology. Coronal and sagittal reformations were obtained. Routine protocol was performed. IV CONTRAST: None ORAL CONTRAST: Administered. COMPLICATIONS: None RADIATION DOSE: Total DLP: 610.74 mGy*cm Estimated effective dose: (DLP x 0.015 x size factor) mSv CTDIvol has been reviewed. It is below the limits set by the Radiation Protocol Committee (RPC). FINDINGS: LINES and TUBES: None. LOWER THORAX: Mild left basilar atelectasis/scarring. HEPATOBILIARY: Unenhanced liver is unremarkable. No biliary ductal dilation. GALLBLADDER: Surgically absent. SPLEEN: No splenomegaly. PANCREAS: No focal masses or ductal dilatation. ADRENALS: No adrenal nodules KIDNEYS/URETERS: No hydronephrosis. Limited for evaluation of renal parenchyma without intravenous contrast. Nonspecific bilateral perinephric fat stranding. No stones. GI TRACT: No abnormal distention, wall thickening, or evidence of bowel obstruction. Appendix is not clearly identified. There is however no fat stranding or adenopathy in the right lower quadrant to suggest appendicitis. Small hiatal hernia. PELVIC ORGANS/BLADDER: Unremarkable. LYMPH NODES: No lymphadenopathy. VESSELS: There is mild atherosclerotic disease in the aorta and major arterial branches. PERITONEUM / RETROPERITONEUM: No free air or fluid. BONES: No acute osseous abnormality. Left femoral head sclerotic focus, likely a bone island. SOFT TISSUES: Evidence of prior ventral hernia repair with surgical mesh in place. IMPRESSION: 1. No definite evidence of inflammatory process in the abdomen/pelvis, considering limitations of unenhanced study. Signed by: Dr. Nasir Combs MD on 06/17/2018 9:58 PM
[2018-06-17] MEDS ORDERED: AZITHROMYCIN 500MG/SOD CHL 0.9% 250ML BAG IV SCH (22:15)
[2018-06-17] MEDS ORDERED: CEFTRIAXONE SOD 1 GRAM/0.9% SOD CHL 50ML BAG IV SCH (22:15)
[2018-06-17] MEDS ORDERED: SODIUM CHLORIDE 0.9% 1000ML 1,000 ML IV SCH (22:15)
[2018-06-17 22:17] LABS: CLARITY,URINE SL CLOUDY (CLEAR); COLOR,URINE YELLOW (YELLOW)
[2018-06-17 22:18] LABS: BILIRUBIN,URINE NEGATIVE (NEGATIVE); KETONES,URINE 2+ (NEGATIVE); LEUKOCYTE ESTERASE ,URINE NEGATIVE (NEGATIVE); NITRITE,URINE NEGATIVE (NEGATIVE); PROTEIN,URINE DIPSTICK 1+ (NEGATIVE); URINE UROBILINOGEN 0.2 mg/dL (0.2 - 1)
[2018-06-17 22:19] LABS: BACTERIA,URINE FEW /HPF; EPITHELIAL CELLS,URINE FEW /LPF; RBC,URINE >50 /HPF (0-5)
--- NOTE | 2018-06-17 23:03 | NUR ---
patient received orders for coude cath due to concern for urinary retention, patient voided with difficulty without cath, cath was placed after bladder was empty and only outputed 75cc, spoke with dr hernandez and harlan falk control tower operator, patient does not meet criteria to receive a felton, patient tolerated straight cath well without complications.
[2018-06-18] VITALS (8 sets, daily range): BP systolic 130–180; BP diastolic 58–90
--- NOTE | 2018-06-18 | NUR ---
Pt admitted to room 205 via WC. Pt alert and orient to name, place, time, and situation. Skin warm, dry, flaky, and intact. No skin breakdowns noted. coughing noted with clear, thin sputum. c/o of muscle tightness in chest when coughing /10. Denies pain medication at this time. 20g IV right AC, NS @125ml/hr. Lungs CTA. Cap refill immediate. Abdomen soft, nontender. No acute distress noted. Oriented to room, call macias within reach. Bed low and locked. Will continue to monitor.
[2018-06-18] MEDS: SODIUM CHLORIDE 0.9% 1000ML 1,000 ML IV SCH ×5 (00:15→21:30)
[2018-06-18 00:45] LABS: CREATINE KINASE MB 1.1 ng/mL (0-5.0)
[2018-06-18] MEDS: ONDANSETRON HCL INJ 2MG/ML 2ML 2 MG/ML VIAL IV PRN ×2 (00:45→06:50)
[2018-06-18 05:33] LABS: BASOPHILS % 0.5 % (0.0-1.0); EOSINOPHILS # (AUTO) 0.1 (0.0-0.4); EOSINOPHILS % 1.2 % (0.0-6.0); HEMATOCRIT 42.4 % (38.2-49.6); HEMOGLOBIN 14.8 g/dL (14.0-18.0); LYMPHOCYTES # (AUTO) 1.3 (1.0-3.2); LYMPHOCYTES % 19.6 % (18.0-39.1); MEAN CORPUSCULAR HEMOGLOBIN 32.2 pg (28-32); MEAN CORPUSCULAR HGB CONC 34.9 g/dL (31-35); MEAN CORPUSCULAR VOLUME 92.4 fL (81-99); MONOCYTES # (AUTO) 0.5 (0.2-0.8); MONOCYTES % 8.1 % (4.4-11.3); NEUTROPHILS # (AUTO) 4.6 (2.1-6.9); NEUTROPHILS % 70.3 % (38.7-80.0); PLATELET COUNT 138 x10e3/uL (140-360); RED BLOOD COUNT 4.59 x10e6/uL (4.3-5.7); RED CELL DISTRIBUTION WIDTH 12.1 % (11.7-14.4)
[2018-06-18 05:57] LABS: ALANINE AMINOTRANSFERASE 25 IU/L (0-55); ALBUMIN 3.2 g/dL (3.5-5.0); ALBUMIN/GLOBULIN RATIO 1.5 (0.8-2.0); ALKALINE PHOSPHATASE 55 IU/L (40-150); BLOOD UREA NITROGEN 16 mg/dL (7-26); BUN/CREATININE RATIO 18 (6-25); CALCIUM 8.3 mg/dL (8.4-10.2); CARBON DIOXIDE 21 mmol/L (22-29); EST GLOMERULAR FILTRATION RATE > 60 ML/MIN (60-); GLUCOSE 97 mg/dL (74-118); POTASSIUM 3.2 mmol/L (3.5-5.1); SODIUM 134 mmol/L (136-145)
[2018-06-18 06:44] LABS: ANION GAP 13.2 mmol/L (8-16); CHLORIDE 107 mmol/L (98-107); CREATININE, SERUM 0.87 mg/dL (0.72-1.25)
[2018-06-18 08:19] LABS: CREATINE KINASE MB 1.1 ng/mL (0-5.0)
[2018-06-18] MEDS: FAMOTIDINE 20 MG/2 ML VIAL IV SCH ×2 (08:57→17:21)
[2018-06-18] MEDS: HYDROCHLOROTHIAZIDE 25 MG TAB PO SCH (08:57)
[2018-06-18] MEDS: ASPIRIN 81 MG CHEW TAB PO SCH (08:57)
--- NOTE | 2018-06-18 09:28 | NUR ---
Dr. Meléndez called to report pt.'s potassium is low at 3.2 and bp 180/81. Order received and notated.
[2018-06-18] MEDS ORDERED: POTASSIUM CHLORIDE 20 MEQ TAB CR PO NR (09:31)
[2018-06-18] MEDS: AMLODIPINE BESYLATE 5 MG TAB PO SCH (10:12)
--- NOTE | 2018-06-18 12:35 | NUR ---
CASE MANAGEMENT ASSESSMENT Ball Holder to bedside to discuss plan of care with patient/family. CM/SW role and care transitions discussed. Anticipated discharge plan discussed along with duration of care. CM/SW discussed patients right to make decisions in care. CM/SW work hours given. Patient lives: with his nephew Armen Lala Admit/Transfer: thru ED Hospital/ER visits since last admit: was recently discharged from this facility on June 13, 2018 Pt stated he was discharged home on PO abx that were too strong, causing him to throw up and be extremely dehydrated, so he came back to the ED POA/Emergency contact: Armen Lala [phone] Current/Previous Home Health: none PCP/Follow-up Care: Dr. Janet Valencia - PCP; advised pt to follow up with MD within 7 days of discharge Current/Previous DME: none Medications (referring to index hospitalization or the first time you were in the hospital) a. Were changes made in your medications when you were in the hospital on June 13? yes; abx b. Did you understand the changes? yes c. Were you able to obtain your new medications right away? yes d. Were you able to take your medications like the doctor wanted you to? yes e. Did the hospital give you an accurate, easy to understand list of medications when you left? 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 Name and number was also written on the patients whiteboard. Patient verbalized understanding of discussion. CM will follow-up with ongoing discharge and transition of care needs.
--- NOTE | 2018-06-18 13:43 | History and Physical ---
HISTORY OF PRESENT ILLNESS: This patient is a 73-year-old with history of pneumonia, who was recently discharged about 2 days ago on Levaquin. The patient went home, was found to have intractable nausea and vomiting, could not eat anything, could not drink anything, the patient came in here, was found to be dehydrated and also continued with coughing and continuous pneumonia. PAST MEDICAL HISTORY: History of hypertension, history of pneumonia, and history of hyperlipidemia. MEDICATIONS: Medicines he takes at home are aspirin 81 mg, atorvastatin 10 mg, hydrochlorothiazide 25 mg, Levaquin 500 mg, which has been discontinued, trazodone 50 mg, and stool softeners. PAST SURGICAL HISTORY: Includes history of appendectomy, history of cholecystectomy, hernia repair, and carotid surgery. ALLERGIES: NO KNOWN DRUG ALLERGIES. REVIEW OF SYSTEMS: Negative for chest pain. Positive for some shortness of breath. Positive for nausea and vomiting. No diarrhea. No constipation. No rectal bleeding. No hematochezia. No hematemesis. FAMILY HISTORY: Positive for heart disease and also diabetes. PHYSICAL EXAMINATION: GENERAL: The patient is alert and oriented x3. VITAL SIGNS: Temperature is 97.6, pulse of 78, respirations of 18, blood pressure is 130/58, pulse oximetry of 94%. HEENT: Normocephalic and atraumatic. Pupils are reactive to light and accommodation. CVS: S1 and S2 normal. Regular rhythm. LUNGS: Positive for rhonchi bilaterally. ABDOMEN: Tender in the epigastric area. EXTREMITIES: No clubbing. No cyanosis. No edema. LABORATORY VALUES AND X-RAYS: The patient's CT scan showed no evidence of inflammatory process in the abdomen on CT scan. Brain CT was done, it showed no acute abnormalities, some mild generalized volume loss. Chest x-ray shows stable reticular opacity in right lower lobe which may represent resolving pneumonia. White count is 9.94, today is 6.54, no left shift present. Chemistry showed sodium of 135, potassium of 3.6, BUN 12, creatinine of 1.13, glucose of 133, and total bili of 1.5. BNP was 54.9. Today's potassium is 3.2, BUN of 16, creatinine of 0.87. Troponins have been trended to be negative. ASSESSMENT: 1. Community-acquired pneumonia, resolving. Plan is to continue with antibiotic that has been started in the ER. The patient is on Rocephin and azithromycin, which we will continue. 2. Intractable nausea and vomiting. The patient is currently on sodium chloride and also on Zofran as needed. 3. Dehydration. Continue with IV fluid resuscitation. Further recommendation and clinical course, we will continue to monitor the patient. MD JULIEN GilliamJ/MODL /[id number]
[2018-06-18 14:12] LABS: CREATINE KINASE MB 1.3 ng/mL (0-5.0)
[2018-06-18] MEDS ORDERED: ENOXAPARIN SOD INJ 40 MG/0.4 ML SYR SC SCH (17:00)
--- NOTE | 2018-06-18 19:00 | NUR ---
BS rounds completed with morning nurse. Pt alert and orient to name, lying in bed HOB 45 degrees. 20g IV right AC, patent. Denies pain at this time. Coughing noted, with clear, thin sputum. Call macias within reach. Will continue to monitor.
--- NOTE | 2018-06-18 19:53 | NUR ---
Spoke with Dr. Meléndez regarding Pt coughing, ordered Robitussin Dm 10ml every 4 hours prn coughing.
[2018-06-18] MEDS ORDERED: STOOL SOFTENER PO SCH (21:00)
[2018-06-18] MEDS: GUAIFENESIN/DEXTROMETHORPHAN LIQD 5 ML UDC PO PRN (21:15)
[2018-06-18] MEDS: DOCUSATE SODIUM 100 MG CAP PO SCH (21:30)
[2018-06-18] MEDS: ATORVASTATIN 10 MG TAB PO SCH (21:30)
[2018-06-18] MEDS: CEFTRIAXONE SOD 1 GM/NS 50 ML 50 ML IV SCH (21:30)
[2018-06-18] MEDS: TRAZODONE HCL 50 MG TAB PO SCH (21:30)
[2018-06-18] MEDS: AZITHROMYCIN 500MG/NS 250 ML 250 ML IV SCH (22:00)
[2018-06-19] VITALS (8 sets, daily range): BP systolic 122–169; BP diastolic 60–84
[2018-06-19 05:14] LABS: BASOPHILS # (AUTO) 0.1 (0.0-0.1); BASOPHILS % 1.1 % (0.0-1.0); EOSINOPHILS # (AUTO) 0.2 (0.0-0.4); EOSINOPHILS % 4.1 % (0.0-6.0); HEMATOCRIT 40.8 % (38.2-49.6); HEMOGLOBIN 14.1 g/dL (14.0-18.0); LYMPHOCYTES # (AUTO) 1.6 (1.0-3.2); LYMPHOCYTES % 36.3 % (18.0-39.1); MEAN CORPUSCULAR HEMOGLOBIN 32.5 pg (28-32); MEAN CORPUSCULAR HGB CONC 34.6 g/dL (31-35); MONOCYTES # (AUTO) 0.5 (0.2-0.8); MONOCYTES % 10.6 % (4.4-11.3); NEUTROPHILS # (AUTO) 2.1 (2.1-6.9); NEUTROPHILS % 47.7 % (38.7-80.0); PLATELET COUNT 137 x10e3/uL (140-360); RED BLOOD COUNT 4.34 x10e6/uL (4.3-5.7)
[2018-06-19 05:35] LABS: ANION GAP 11.7 mmol/L (8-16); BLOOD UREA NITROGEN 9 mg/dL (7-26); BUN/CREATININE RATIO 9 (6-25); CALCIUM 8.5 mg/dL (8.4-10.2); CARBON DIOXIDE 25 mmol/L (22-29); CHLORIDE 105 mmol/L (98-107); CREATININE, SERUM 0.98 mg/dL (0.72-1.25); EST GLOMERULAR FILTRATION RATE > 60 ML/MIN (60-); GLUCOSE 96 mg/dL (74-118); POTASSIUM 3.7 mmol/L (3.5-5.1); SODIUM 138 mmol/L (136-145)
--- NOTE | 2018-06-19 07:00 | NUR ---
RCD PT AT BED PT IS ALERT AND ORIENTED RESTING ON BED IV PATENT BED LOW AND LOCKED CALL LIGHT IN REACH
[2018-06-19] MEDS: AMLODIPINE BESYLATE 5 MG TAB PO SCH (09:00)
[2018-06-19] MEDS: FAMOTIDINE 20 MG/2 ML VIAL IV SCH ×2 (09:00→17:00)
[2018-06-19] MEDS: HYDROCHLOROTHIAZIDE 25 MG TAB PO SCH (09:00)
[2018-06-19] MEDS: ASPIRIN 81 MG CHEW TAB PO SCH (09:00)
--- NOTE | 2018-06-19 10:17 | Progress Note ---
DATE: SUBJECTIVE: The patient comes in with pneumonia, dehydration with intolerance of p.o. antibiotics and failed outpatient treatment. Currently, complains of cough and copious expectoration. The patient has not walked yesterday, on the weaker side. OBJECTIVE: GENERAL: The patient is alert and oriented, feels better today. VITAL SIGNS: Temperature is 97.6, pulse of 43, respirations of 20, blood pressure is 150/64, pulse oximetry of 97%. HEENT: Normocephalic, atraumatic. Pupils are reactive to light and accommodation. CVS: S1 and S2 normal. Regular rhythm. ABDOMEN: Nontender, nondistended. LUNGS: Positive for minimal inspiratory wheezes bilaterally. EXTREMITIES: No clubbing, no cyanosis, and no edema. MEDICATIONS: Azithromycin, ceftriaxone, trazodone, atorvastatin, enoxaparin for DVT prophylaxis, famotidine, amlodipine, hydrochlorothiazide, and ondansetron p.r.n. LABORATORY VALUES: Today's white count is 4.43, hemoglobin of 14.1, hematocrit of 40.8, platelet count was 137, and the patient does not have a left shift. Chemistries; sodium of 138, potassium of 3.7, creatinine 0.98. Coags are normal. ASSESSMENT: 1. A 73-year-old gentleman with failed outpatient treatment for pneumonia. 2. Slight neutropenia and thrombocytopenia today. We will stop the Lovenox right now. The patient can walk. Troponins have been negative. 3. Dehydration, better. Continue with IV fluids and resuscitation. 4. History of hypertension. Continue the antihypertensive. Further recommendation per clinical course. We will stop the Lovenox today and continue to monitor the patient. MD JULIEN GilliamJ/MODL /[id number]
--- NOTE | 2018-06-19 12:30 | NUR ---
IMM delivered and explained to pt. He verbalized understanding. Signed copy in chart. Copy to pt Anticipate discharge for tomorrow.
--- NOTE | 2018-06-19 18:37 | NUR ---
PT RESTING ON BED BED SIDE REPORT GIVEN TO ONCOMING NURSE
[2018-06-19] MEDS: DOCUSATE SODIUM 100 MG CAP PO SCH (20:13)
[2018-06-19] MEDS: TRAZODONE HCL 50 MG TAB PO SCH (20:14)
[2018-06-19] MEDS: ATORVASTATIN 10 MG TAB PO SCH (20:14)
[2018-06-19] MEDS: CEFTRIAXONE SOD 1 GM/NS 50 ML 50 ML IV SCH (20:15)
[2018-06-19] MEDS: GUAIFENESIN/DEXTROMETHORPHAN LIQD 5 ML UDC PO PRN (20:15)
[2018-06-19] MEDS: AZITHROMYCIN 500MG/NS 250 ML 250 ML IV SCH (22:20)
[2018-06-20 00:31] VITALS: BP 160/77
[2018-06-20 04:51] VITALS: BP 135/58
[2018-06-20 05:33] LABS: BASOPHILS # (AUTO) 0.1 (0.0-0.1); BASOPHILS % 1.1 % (0.0-1.0); EOSINOPHILS # (AUTO) 0.2 (0.0-0.4); EOSINOPHILS % 4.5 % (0.0-6.0); HEMATOCRIT 41.2 % (38.2-49.6); HEMOGLOBIN 14.2 g/dL (14.0-18.0); LYMPHOCYTES # (AUTO) 1.7 (1.0-3.2); LYMPHOCYTES % 35.4 % (18.0-39.1); MEAN CORPUSCULAR HEMOGLOBIN 32.1 pg (28-32); MEAN CORPUSCULAR HGB CONC 34.5 g/dL (31-35); MONOCYTES # (AUTO) 0.5 (0.2-0.8); MONOCYTES % 10.4 % (4.4-11.3); NEUTROPHILS # (AUTO) 2.3 (2.1-6.9); NEUTROPHILS % 48.4 % (38.7-80.0); PLATELET COUNT 130 x10e3/uL (140-360); RED BLOOD COUNT 4.43 x10e6/uL (4.3-5.7)
[2018-06-20 06:02] LABS: ANION GAP 11.7 mmol/L (8-16); BLOOD UREA NITROGEN 13 mg/dL (7-26); BUN/CREATININE RATIO 14 (6-25); CARBON DIOXIDE 28 mmol/L (22-29); CHLORIDE 104 mmol/L (98-107); CREATININE, SERUM 0.95 mg/dL (0.72-1.25); EST GLOMERULAR FILTRATION RATE > 60 ML/MIN (60-); GLUCOSE 102 mg/dL (74-118); POTASSIUM 3.7 mmol/L (3.5-5.1); SODIUM 140 mmol/L (136-145)
--- NOTE | 2018-06-20 07:00 | NUR ---
RCD PT AT BED PT IS ALERT AND ORIENTED RESTING ON BED IV PATENT BED LOW AND LOCKED CALL LIGHT IN REACH
[2018-06-20 07:58] VITALS: BP 135/58
[2018-06-20 08:00] VITALS: BP 127/63
[2018-06-20] MEDS ORDERED: AZITHROMYCIN250 MG PO (08:02)
[2018-06-20] MEDS ORDERED: ZITHROMAX TRI-500 MG PO (08:02)
[2018-06-20] MEDS ORDERED: PROMETHAZINE-D118 ML PO (08:05)
[2018-06-20] MEDS: FAMOTIDINE 20 MG/2 ML VIAL IV SCH (09:00)
[2018-06-20] MEDS: HYDROCHLOROTHIAZIDE 25 MG TAB PO SCH (09:00)
[2018-06-20] MEDS: ASPIRIN 81 MG CHEW TAB PO SCH (09:00)
[2018-06-20] MEDS: AMLODIPINE BESYLATE 5 MG TAB PO SCH (09:00)
--- NOTE | 2018-06-20 10:51 | Progress Note ---
DATE: SUBJECTIVE: The patient is a 73-year-old male, comes in with failed outpatient treatment of pneumonia. The patient is currently afebrile, asymptomatic, cough is resolved considerably. MEDICATIONS: He is on are Rocephin and Zithromax. The patient is also on his normal CV medications, which include hydrochlorothiazide, atorvastatin, aspirin, and amlodipine. PHYSICAL EXAMINATION: VITAL SIGNS: Temperature is 96.5, pulse of 54, respirations of 18, and blood pressure is 135/58. HEENT: Normocephalic and atraumatic. Pupils are reactive to light and accommodation. CVS: S1 and S2 are normal. Regular rate and rhythm. ABDOMEN: Nontender and nondistended. LUNGS: Clear to auscultation at this time. EXTREMITIES: No clubbing, no cyanosis, and no edema. MICROBIOLOGY: Gram stain sputum, upper respiratory natalie, few gram-positive cocci in pairs and chains. LABORATORY VALUES: Today's white count is normal to 4.69, hemoglobin of 14.2, hematocrit of 41.2, and platelet count is 130. The patient's Lovenox was stopped yesterday and chemistries are normal. Creatinine is normal. Coags are normal too. ASSESSMENT AND PLAN: 1. A 73-year-old gentleman with recurrent pneumonia, failed outpatient treatment. 2. Neutropenia and thrombocytopenia. Lovenox has been stopped. We will continue to monitor the patient and troponins are negative. 3. Dehydration, better. IV fluids have been stopped. 4. History of hypertension. Continue . The patient can be discharged today on azithromycin. He has an allergy to Levaquin. The patient will be followed up by Dr. Magallon as an outpatient. For further information, look in the chart. The patient will be discharged and continue to monitor as an outpatient. MD HARESH Gilliam/HANH /[id number]
--- NOTE | 2018-06-20 12:19 | NUR ---
PATIENT WENT HOME IN SAFE CONDITION WITH HIS NEPHEW
[2018-06-20 12:36] VITALS: BP 148/76
== END 2018-06-20 12:19 | disposition home or self-care (01) | DRG 194 ==
LOC: ER 13:37 → ERHOLD 22:30 → MED/SURG2 06-18 00:01
PROVIDERS: ADMIT Family Medicine; ATTEND Family Medicine
DX: J15.9 Unspecified bacterial pneumonia (principal); N30.01 Acute cystitis with hematuria; R19.7 Diarrhea, unspecified; E86.0 Dehydration; D70.9 Neutropenia, unspecified; D69.6 Thrombocytopenia, unspecified; I10 Essential (primary) hypertension
CPT/HCPCS: 36415; 70450; 71045; 74176; 80048; 80053; 81001; 82150; 82550; 82553; 83690; 83880; 84484; 85025; 85610; 85730; 87070; 87205; 93005; 99284; J0456; J0696; J1650; J2405; J7030

== ENCOUNTER 2018-08-10 15:31 | Observation (INO) | payer MEDICARE ==
[~2018-08-10] VITALS: Ht 165.1 cm; Wt 87.1 kg
[~2018-08-10 15:31] MED LIST changes: +AZITHROMYCIN250 MG PO; +PROMETHAZINE-D118 ML PO; +ZITHROMAX TRI-500 MG PO
--- OUTSIDE RECORDS SUMMARY | 2018-08-10 15:34 | XMS REPORT | Continuity of Care Document ---
Author Author [facility] Interface Address Unknown Phone Unavailable Problems Problem Status Onset Date Classification Date Reported Comments Source Pharyngitis Resolved 04/08/2016 Problem 07/04/2018 [facility], [facility] M25.561 - PAIN IN RIGHT KNEE Active 02/22/2015 [facility] Broken leg<sup>2</sup> Resolved 02/03/2015 Problem 07/04/2018 Right leg [facility], [facility] Benign essential hypertension<sup>1</sup> Active 09/07/2014 Problem 07/04/2018 Data migrated from [employer] on 11/02/14. [facility] Hyperlipidemia<sup>2</sup> Active 09/07/2014 Problem 03/02/2015 Data migrated from [employer] on 11/02/14. [facility] Insomnia<sup>3</sup> Active 09/07/2014 Problem 03/02/2015 Data migrated from [employer] on 11/02/14. [facility] Morbid obesity<sup>4</sup> Active 09/07/2014 Problem 03/02/2015 Data migrated from [employer] on 11/02/14. [facility] Tobacco dependence syndrome<sup>5</sup> Resolved 09/07/2014 Problem 07/04/2018 Data migrated from [employer] on 11/02/14. [facility] Morbid obesity<sup>5</sup> Active 09/07/2014 Problem 03/15/2017 Data migrated from [employer] on 11/02/14. [facility] Tobacco dependence syndrome<sup>6</sup> Active 09/07/2014 Problem 03/15/2017 Data migrated from [employer] on 11/02/14. [facility] Hyperlipidemia<sup>3</sup> Active 09/07/2014 Problem 07/04/2018 Data migrated from [employer] on 11/02/14. [facility] Insomnia<sup>4</sup> Active 09/07/2014 Problem 07/04/2018 Data migrated from [employer] on 11/02/14. [facility] Allergy Active Problem 07/04/2018 [facility] Clogged artery (<span ID="[id number]">Confirmed</span>) Resolved Problem 07/04/2018 [facility] Right ankle pain Active Problem 03/25/2016 [facility] Right foot pain Active Problem 03/25/2016 [facility] Left trigger finger Resolved Problem 07/04/2018 [facility] Chronic pain of right ankle Active Problem 07/04/2018 [facility] Bronchitis Resolved Problem 07/04/2018 [facility] Obesity Active Problem 07/04/2018 [facility] Pneumonia Active Problem 07/04/2018 [facility] Dehydration Active Problem 06/20/2018 [facility] Diarrhea Active Problem 06/20/2018 [facility] Failure of outpatient treatment Active Problem 06/20/2018 [facility] Vomiting Active Problem 06/20/2018 [facility] Medications Medication Details Route Status Patient Instructions Ordering Provider Order Date Source Levofloxacin (Levaquin) 500 Mg Tablet, 500 Mg Oral Daily Active 06/20/2018 [facility] Home Medication garcinia cambogia, Refill(s) 0 Active 12/02/2017 [facility] Trazodone Hydrochloride 50 MG Oral Tablet See Instructions, # 30 tab, Refill(s) 3, TAKE 1 TABLET BY MOUTH AT BEDTIME, Pharmacy: [facility] [id number] Active 08/21/2017 [facility] Ciprofloxacin 500 MG Oral Tablet [Cipro] 500 mg=1 tab, PO, Q12H, X 10 day, # 20 tab, 0 Refill(s), Pharmacy: [facility] [id number] No Longer Active 07/30/2017 [facility] atorvastatin 10 mg oral tablet See Instructions, TAKE 1 TABLET BY MOUTH AT BEDTIME, # 90 tab, 0 Refill(s), Pharmacy: [facility] [id number] Active 06/12/2017 [facility] Trazodone Hydrochloride 50 MG Oral Tablet See Instructions, TAKE 1 TABLET BY MOUTH BEDTIME, # 30 tab, 1 Refill(s), Pharmacy: [facility] [id number] No Longer Active 06/12/2017 [facility] Vitamin C Daily, 0 Refill(s) Active 06/04/2017 [facility] Trazodone Hydrochloride 50 MG Oral Tablet See Instructions, # 30 tab, Refill(s) 1, TAKE 1 TABLET BY MOUTH BEDTIME, Pharmacy: [facility] [id number] Active 03/11/2017 [facility] Aspirin (Aspir 81) 81 Mg Tablet. Daily Active [facility] Atorvastatin Calcium 10 Mg Tablet Bedtime Active [facility] Azithromycin (Z-Elkin) 250 Mg Tablet Use As Directed Active Z- Pack [facility] Azithromycin (Zithromax Tri-Elkin) 500 Mg Tablet Active [facility] D-Methorphan Hb/Prometh Hcl (Promethazine-Dm Syrup) 118 Ml Syrup Every 6 Hours Active [facility] Hydrochlorothiazide 25 Mg Tablet Daily Active [facility] Stool Softener Bedtime Active [facility] Trazodone Hcl 50 Mg Tablet Bedtime Active [facility] Vitamin C Daily Active [facility] Vitamin D Daily Active [facility] Vitamin E Daily Active [facility] Allergies, Adverse Reactions, Alerts Substance Category Reaction Severity Reaction type Status Date Reported Comments Source iodine<sup>1</sup> Assertion Drug allergy Active 09/07/2014 Data migrated from [employer] on11/03/14. Originally documented as IODINE. [facility] Iodine Severe Allergy to Substance Active 06/10/2018 [facility] Food Seafood Assertion Drug allergy Active [facility] Immunizations Immunization Date Given Site Status Last Updated Comments Source influenza virus vaccine, inactivated<sup>1</sup> 02/20/2015 Right Deltoid completed David Result Comment: [facility]: [id number] JACQUELINE C[facility], [facility] Results Order Name Results Value Reference Range Date Interpretation Comments Source Chest 2 views DX Chest 2 views DX EXAM: Chest 2 views DX HISTORY: - J18.9 Pneumonia, unspecified organism COMPARISON: 09/07/2014 The heart size is normal. There is left basilar scarring and pleural thickening is similar to the prior study. No acute skeletal abnormality. IMPRESSION: No acute abnormality. 07/01/2018 - - Read by: Ariane Lopez MD Dictated Date/time: 07/01/18 14:10 Electronically Signed by: Ariane Lopez MD 07/01/18 14:11 FINAL REPORT [facility] Blood leukocytes automated count (number/volume) 4.69 4.8 - 10.8 06/20/2018 [facility] Blood erythrocytes automated count (number/volume) 4.43 4.3 - 5.7 06/20/2018 [facility] Blood hemoglobin measurement (moles/volume) 14.2 14.0 - 18.0 06/20/2018 [facility] Automated blood hematocrit (volume fraction) 41.2 38.2 - 49.6 06/20/2018 [facility] Automated erythrocyte mean corpuscular volume 93.0 81 - 99 06/20/2018 [facility] Automated erythrocyte mean corpuscular hemoglobin (mass per erythrocyte) 32.1 28 - 32 06/20/2018 [facility] Automated erythrocyte mean corpuscular hemoglobin concentration measurement (mass/volume) 34.5 31 - 35 06/20/2018 [facility] RDW BldCo-Rto 12.0 11.7 - 14.4 06/20/2018 [facility] Automated blood platelet count (count/volume) 130 140 - 360 06/20/2018 [facility] Automated blood segmented neutrophil count as percentage of total leukocytes 48.4 38.7 - 80.0 06/20/2018 [facility] Automated blood lymphocyte count as percentage ot total leukocytes 35.4 18.0 - 39.1 06/20/2018 [facility] Automated blood monocyte count as percentage of total leukocytes 10.4 4.4 - 11.3 06/20/2018 [facility] Automated blood eosinophil count as percentage of total leukocytes 4.5 0.0 - 6.0 06/20/2018 [facility] Automated blood basophil count as percentage of total leukocytes 1.1 0.0 - 1.0 06/20/2018 [facility] IM GRANULOCYTES % 0.2 0.0 - 1.0 06/20/2018 [facility] Automated blood neutrophil count 2.3 2.1 - 6.9 06/20/2018 [facility] Blood lymphocytes count (number/volume) 1.7 1.0 - 3.2 06/20/2018 [facility] Blood monocytes automated count (number/volume) 0.5 0.2 - 0.8 06/20/2018 [facility] Automated blood eosinophil count 0.2 0.0 - 0.4 06/20/2018 [facility] Automated blood basophil count (count/volume) 0.1 0.0 - 0.1 06/20/2018 [facility] Absolute Immature Granulocyte (auto 0.01 0 - 0.1 06/20/2018 [facility] Serum or plasma sodium measurement (moles/volume) 140 136 - 145 06/20/2018 [facility] Serum or plasma potassium measurement (moles/volume) 3.7 3.5 - 5.1 06/20/2018 [facility] Serum or plasma chloride measurement (moles/volume) 104 98 - 107 06/20/2018 [facility] Serum or plasma carbon dioxide, total measurement (moles/volume) 28 22 - 29 06/20/2018 [facility] Serum or plasma anion gap 11.7 8 - 16 06/20/2018 [facility] Serum or plasma urea nitrogen measurement (mass/volume) 13 7 - 26 06/20/2018 [facility] Serum or plasma creatinine measurement (mass/volume) 0.95 0.72 - 1.25 06/20/2018 [facility] Serum or plasma urea nitrogen/creatinine mass ratio 14 6 - 25 06/20/2018 [facility] Estimated glomerular filtration rate (GFR) determination > 60 60 06/20/2018 [facility] Glucose measurement 102 74 - 118 06/20/2018 [facility] Serum or plasma calcium measurement (mass/volume) 9.0 8.4 - 10.2 06/20/2018 [facility] Serum or plasma creatine kinase measurement (enzymatic activity/volume) 63 30 - 200 06/18/2018 [facility] Serum or plasma creatine kinase MB measurement (mass/volume) 1.30 0 - 5.0 06/18/2018 [facility] Troponin I measurement by highly sensitive enzyme immunoassay 0.019 0 - 0.300 06/18/2018 [facility] Serum or plasma total bilirubin measurement (mass/volume) 1.2 0.2 - 1.2 06/18/2018 [facility] Aspartate Amino Transf (AST/SGOT) 18 5 - 34 06/18/2018 [facility] Serum or plasma alanine aminotransferase measurement (enzymatic activity/volume) 25 0 - 55 06/18/2018 [facility] Serum or plasma protein measurement (mass/volume) 5.3 6.5 - 8.1 06/18/2018 [facility] Serum or plasma albumin measurement (mass/volume) 3.2 3.5 - 5.0 06/18/2018 [facility] Plasma globulin measurement (mass/volume) 2.1 2.3 - 3.5 06/18/2018 [facility] Serum or plasma albumin/globulin mass ratio 1.5 0.8 - 2.0 06/18/2018 [facility] Serum or plasma alkaline phosphatase measurement (enzymatic activity/volume) 55 40 - 150 06/18/2018 [facility] Urine color determination YELLOW YELLOW 06/17/2018 [facility] Urine clarity SL CLOUDY CLEAR 06/17/2018 [facility] Specific gravity of Urine by Test strip 1.030 1.010 - 1.025 06/17/2018 [facility] Urine pH measurement by automated test strip 5 5 - 7 06/17/2018 [facility] Urine leukocyte esterase detection by dipstick NEGATIVE NEGATIVE 06/17/2018 [facility] Urine nitrite detection NEGATIVE NEGATIVE 06/17/2018 [facility] Urine protein measurement by test strip (mass/volume) 1+ NEGATIVE 06/17/2018 [facility] Urine glucose detection NEGATIVE NEGATIVE 06/17/2018 [facility] Urine ketones detection by automated test strip 2+ NEGATIVE 06/17/2018 [facility] Urine urobilinogen measurement by test strip (mass/volume) 0.2 0.2 - 1 06/17/2018 [facility] Urine total bilirubin measurement (mass/volume) NEGATIVE NEGATIVE 06/17/2018 [facility] Urine erythrocytes detection 4+ NEGATIVE 06/17/2018 [facility] Automated urine sediment leukocyte count by microscopy (number/high power field) 6-10 0 - 5 06/17/2018 [facility] Erythrocytes detection in urine sediment by light microscopy >50 0 - 5 06/17/2018 [facility] Bacteria detection in urine sediment by light microscopy FEW NONE 06/17/2018 [facility] Epithelial cells detection in urine sediment by light microscopy FEW NONE 06/17/2018 [facility] Hyaline casts detection in urine sediment by light microscopy 2-5 0 - 1 06/17/2018 [facility] Prothrombin time (PT) in platelet poor plasma by coagulation assay 13.4 11.9 - 14.5 06/17/2018 [facility] INR in Platelet poor plasma by Coagulation assay 0.94 06/17/2018 [facility] Activated partial thromboplastin time (aPTT) in platelet poor plasma bycoagulation assay 40.6 23.8 - 35.5 06/17/2018 [facility] BNP Bld-mCnc 54.9 0 - 100 06/17/2018 [facility] Serum or plasma amylase measurement (enzymatic activity/volume) 50 25 - 125 06/17/2018 [facility] Serum or plasma lipase measurement (enzymatic activity/volume) 33 8 - 78 06/17/2018 [facility] Blood culture NO GROWTH AFTER 5 DAYS, FINAL REPORT 06/10/2018 [facility] Amorphous sediment detection in urine sediment by light microscopy FEW FEW 06/10/2018 [facility] Mucus detection in urine sediment by light microscopy FEW RARE 06/10/2018 [facility] Lactic Acid Level 18.0 4.5 - 19.8 06/10/2018 [facility] Foot 2 views DX Foot 2 views [...] Crescencio Mcmahon MD 03/22/16 13:26 FINAL REPORT [facility] Ankle 2 views DX Ankle 2 [...] Crescencio Mcmahon MD 03/22/16 13:26 FINAL REPORT [facility] Knee wo contrast MRI Knee wo [...] Crescencio Mcmahon MD 02/27/15 13:40 [facility] Sign[facility] Vital Sign Value Date Comments Source Height 167.64 cm 07/01/2018 [facility] Respitory Rate 16 07/01/2018 [facility] Heart Rate 57 07/01/2018 [facility] Systolic (mm Hg) 135 07/01/2018 [facility] Diastolic (mm Hg) 84 07/01/2018 [facility] Weight 93.381 07/01/2018 [facility] BMI Calculated 33.23 07/01/2018 [facility] Height 167.64 cm 12/02/2017 [facility] BMI Calculated 34.37 12/02/2017 [facility] Weight 96.591 12/02/2017 [facility] Respitory Rate 14 12/02/2017 [facility] Temperature Oral (F) 97.5 F 12/02/2017 [facility] Heart Rate 73 12/02/2017 [facility] Systolic (mm Hg) 130 12/02/2017 [facility] Diastolic (mm Hg) 84 12/02/2017 [facility] Height 167.64 cm 07/30/2017 [facility] Respitory Rate 12 07/30/2017 [facility] BMI Calculated 34.13 07/30/2017 [facility] Temperature Oral (F) 98.0 F 07/30/2017 [facility] Weight 95.909 07/30/2017 [facility] Heart Rate 61 07/30/2017 [facility] Systolic (mm Hg) 144 07/30/2017 [facility] Diastolic (mm Hg) 82 07/30/2017 [facility] Weight 96.136 06/04/2017 [facility] Height 165.1 cm 06/04/2017 [facility] BMI Calculated 35.27 06/04/2017 [facility] Systolic (mm Hg) 144 06/04/2017 [facility] Diastolic (mm Hg) 87 06/04/2017 [facility] Heart Rate 71 06/04/2017 [facility] Temperature Oral (F) 97.7 F 06/04/2017 [facility] Respitory Rate 14 06/04/2017 [facility] Encounters Location Location Details Encounter Type Encounter Number Reason For Visit Attending Provider ADM Date DC Date Status Source [facility] [id number] Onofre Zuniga 09/07/2014 09/08/2014 [facility] Outpatient [id number] ONOFRE ZUNIGA 10/31/2014 Active [facility] Outpatient [id number] ONOFRE ZUNIGA 10/31/2014 Active [facility] Outpatient [id number] ONOFRE ZUNIGA 02/20/2015 Active [facility] Outpatient [facility] [id number] Onofre Zuniga 02/27/2015 02/28/2015 [facility] Outpatient [id number] ONOFRE ZUNIGA 04/25/2015 Active [facility] Outpatient [id number] ONOFRE ZUNIGA 03/22/2016 Active [facility] Outpatient [facility] [id number] Onofre Zuniga 03/22/2016 03/23/2016 [facility] Outpatient [id number] ONOFRE ZUNIGA 04/08/2016 Active [facility] Outpatient [id number] ONOFRE ZUNIGA 09/17/2016 Active [facility] Outpatient [id number] ONOFRE ZUNIGA 01/24/2017 Active [facility] [place] Phone Message [id number] 03/11/2017 03/13/2017 [facility] Outpatient [id number] ONOFRE ZUNIGA 06/04/2017 Active [facility] Outpatient [id number] Onofre Zuniga 06/04/2017 06/05/2017 Medical Group [facility] [place] Phone Message [id number] 06/12/2017 06/14/2017 [facility] Outpatient [id number] ONOFRE ZUNIGA 07/30/2017 Active [facility] Outpatient [id number] Onofre Zuniga 07/30/2017 07/31/2017 [facility] Outpatient [id number] ONOFRE ZUNIGA 12/02/2017 Active [facility] Outpatient [id number] Onofre Zuniga 12/02/2017 12/03/2017 [facility] Outpatient [id number] ONOFRE ZUNIGA 03/11/2018 Active [facility] Outpatient [id number] ONOFRE ZUNIGA 03/30/2018 Active [facility] Discharged Inpatient [id number] ARAVIND TURCIOS MD 06/10/2018 06/13/2018 [facility] Discharged Inpatient [id number] STEVE ROQUE MD 06/17/2018 06/20/2018 [facility] Outpatient [id number] ONOFRE ZUNIGA 07/01/2018 Active [facility] Outpatient [id number] Oonfre Zuniga 07/01/2018 07/02/2018 Medical Group [facility] [id number] Onofre Zuniga 07/01/2018 07/02/2018 [facility] Procedures Procedure Code Date Perfomer Comments Source Computed tomography of brain without radiopaque contrast [id number] 06/17/2018 [facility] CT of abdomen and pelvis without contrast [id number] 06/17/2018 [facility] X-ray of chest, two views [id number] 06/13/2018 [facility] Appendectomy [id number] [facility] Cholecystectomy [id number] [facility] Hernia repair [id number] [facility] Appendectomy [id number] [facility] Cholecystectomy [id number] [facility] Hernia repair [id number] [facility]
--- OUTSIDE RECORDS SUMMARY | 2018-08-10 15:34 | XMS REPORT | Summary of Care ---
Author Author [facility] [place] Organization [facility] [place] Address Unknown Phone Unavailable Encounter HQ Aguila(FIN) [id number] Date(s): 07/01/18 - 07/01/18 [facility] [place] [address] [place] [phone] Discharge Disposition: Home or Self Care Attending Physician: Janet Valencia MD Vital Signs Most recent to 1 oldest [Reference Range]: Height 167.64 cm (07/01/18 10:47 AM) Blood Pressure 135/84 mmHg [90-140/60-90 mmHg] (07/01/18 10:47 AM) Respiratory Rate 16 BRMIN [14-20 BRMIN] (07/01/18 10:47 AM) Peripheral Pulse 57 bpm Rate [60-100 bpm] *LOW* (07/01/18 10:47 AM) Weight 93.381 kg (07/01/18 10:47 AM) Body Mass Index 33.23 m2 (07/01/18 10:47 AM) Problem List Condition Effective Dates Status Health Status Informant Allergy(Confirmed) Active Chronic pain of Active right ankle(Confirmed) Benign essential 09/07/14 Active hypertension1 Broken 02/03/15 - 02/13/15 Resolved leg(Confirmed)2 Bronchitis(Confirmed Resolved ) Clogged artery Resolved (heart)(Confirmed) Hyperlipidemia3 09/07/14 Active Insomnia4 09/07/14 Active Obesity(Confirmed) Active Pharyngitis(Confirme < 04/08/16 Resolved d) Pneumonia(Confirmed) Active Tobacco dependence 09/07/14 Resolved syndrome5 Left trigger Resolved finger(Confirmed) 1Data migrated from [employer] on 11/02/14. 2Right leg 3Data migrated from [employer] on 11/02/14. 4Data migrated from [employer] on 11/02/14. 5Data migrated from [employer] on 11/02/14. Allergies, Adverse Reactions, Alerts Substance Reaction Severity Status Food Seafood Active iodine1 Active 1Data migrated from [employer] on11/03/14. Originally documented as IODINE. Medications No Known Medications Results No data available for this section Immunizations Given and Recorded Vaccine Date Status Refusal Reason influenza virus vaccine, inactivated1 02/20/15 Given 1Result Comment: [facility]: [id number] Procedures Procedure Date Related Diagnosis Body Site [...] Tobacco use per day: 1; entered on: 07/01/18 Assessment and Plan No data available for this section
--- OUTSIDE RECORDS SUMMARY | 2018-08-10 15:34 | XMS REPORT | Summary of Care ---
Author Author [facility] Organization [facility] Address Unknown Phone Unavailable Encounter LUCHO Sheehan(FIN) [id number] Date(s): 07/01/18 - 07/01/18 [facility] [address] [place] [phone] Discharge Disposition: Home or Self Care Attending Physician: Janet Valencia MD Referring Physician: Janet Valencia MD Vital Signs No [...] Seafood Active iodine1 Active 1Data migrated from [employer] on11/03/14. Originally documented as IODINE. Medications No data available for this section Results No data available for this section Immunizations Given and Recorded Vaccine Date Status Refusal Reason influenza virus vaccine, inactivated1 02/20/15 Given 1Result Comment: [facility]: [id number] Procedures Procedure Date Related Diagnosis Body Site [...]
--- OUTSIDE RECORDS SUMMARY | 2018-08-10 15:34 | XMS REPORT | Summary of Care ---
Author Author [facility] Organization [facility] Address Unknown Phone Unavailable Encounter HQ Maishar_amari(FIN) [id number] Date(s): 12/02/17 - 12/02/17 [facility] [address] [address] [place] [id number] [phone] Discharge Disposition: Home or Self Care Attending Physician: Janet Valencia MD Vital Signs Most recent to 1 oldest [Reference Range]: Height 167.64 cm (12/02/17 8:44 AM) Temperature Oral 97.5 DegF [96.4-99.1 DegF] (12/02/17 8:44 AM) Blood Pressure 130/84 mmHg [90-140/60-90 mmHg] (12/02/17 8:44 AM) Respiratory Rate 14 BRMIN [14-20 BRMIN] (12/02/17 8:44 AM) Peripheral Pulse 73 bpm Rate [60-100 bpm] (12/02/17 8:44 AM) Weight 96.591 kg (12/02/17 8:44 AM) Body Mass Index 34.37 m2 (12/02/17 8:44 AM) Problem List Condition Effective Dates Status Health Status Informant Allergy(Confirmed) Active Chronic pain of Active right ankle(Confirmed) Benign essential 09/07/14 Active hypertension1 Broken 02/03/15 - 02/13/15 Resolved leg(Confirmed)2 Bronchitis(Confirmed Active ) Clogged artery Resolved (heart)(Confirmed) Hyperlipidemia3 09/07/14 [...] Centricity on11/03/14. Originally documented as IODINE. Medications Home Medication gonzalohal adamluciashant, Refill(s) 0 Start Date: 12/02/17 Status: Ordered Results No data available for this section Immunizations Given and Recorded Vaccine Date Status Refusal Reason influenza virus vaccine, inactivated1 02/20/15 Given 1Result Comment: [facility]: 18431-462-95 Procedures Procedure Date Related Diagnosis Body Site [...] Tobacco use per day: 1; entered on: 03/30/18 Assessment and Plan No data available for this section
[2018-08-10 16:58] LABS: BASOPHILS # (AUTO) 0.1 (0.0-0.1); BASOPHILS % 0.5 % (0.0-1.0); EOSINOPHILS # (AUTO) 0.1 (0.0-0.4); EOSINOPHILS % 1.1 % (0.0-6.0); HEMATOCRIT 51.4 % (38.2-49.6); HEMOGLOBIN 17.6 g/dL (14.0-18.0); LYMPHOCYTES # (AUTO) 1.2 (1.0-3.2); LYMPHOCYTES % 11.1 % (18.0-39.1); MEAN CORPUSCULAR HEMOGLOBIN 32.4 pg (28-32); MEAN CORPUSCULAR HGB CONC 34.2 g/dL (31-35); MEAN CORPUSCULAR VOLUME 94.7 fL (81-99); MONOCYTES # (AUTO) 0.6 (0.2-0.8); MONOCYTES % 5.4 % (4.4-11.3); NEUTROPHILS # (AUTO) 8.7 (2.1-6.9); NEUTROPHILS % 81.4 % (38.7-80.0); PLATELET COUNT 178 x10e3/uL (140-360); RED BLOOD COUNT 5.43 x10e6/uL (4.3-5.7); RED CELL DISTRIBUTION WIDTH 12.4 % (11.7-14.4)
--- NOTE | 2018-08-10 17:06 | Diagnostic Imaging Report ---
Examination: Single AP view of the chest. COMPARISON: None. INDICATION: Dyspnea DISCUSSION: Lines/tubes: None. Lungs: The lungs are well inflated and clear. No pneumonia or pulmonary edema. Pleura: No pleural effusion or pneumothorax. Heart and mediastinum: The heart and the mediastinum are unremarkable. Bones and soft tissues: No acute bony abnormalities. IMPRESSION: 1. No acute cardiopulmonary abnormalities. Signed by: Dr. Mo Arzate M.D. on 08/10/2018 5:03 PM
[2018-08-10 17:10] LABS: INR 0.93; PARTIAL THROMBOPLASTIN TIME 29.4 seconds (23.8-35.5)
[2018-08-10 17:21] LABS: ALANINE AMINOTRANSFERASE 38 IU/L (0-55); ALBUMIN/GLOBULIN RATIO 1.2 (0.8-2.0); ALKALINE PHOSPHATASE 68 IU/L (40-150); ANION GAP 12.8 mmol/L (8-16); BLOOD UREA NITROGEN 11 mg/dL (7-26); BUN/CREATININE RATIO 12 (6-25); CALCIUM 9.8 mg/dL (8.4-10.2); CARBON DIOXIDE 24 mmol/L (22-29); CHLORIDE 103 mmol/L (98-107); CREATINE KINASE 51 IU/L (30-200); CREATININE, SERUM 0.89 mg/dL (0.72-1.25); EST GLOMERULAR FILTRATION RATE > 60 ML/MIN (60-); GLUCOSE 164 mg/dL (74-118); POTASSIUM 3.8 mmol/L (3.5-5.1); SODIUM 136 mmol/L (136-145)
[2018-08-10 20:13] LABS: CLARITY,URINE SL CLOUDY (CLEAR); COLOR,URINE YELLOW (YELLOW); LEUKOCYTE ESTERASE ,URINE NEGATIVE (NEGATIVE); NITRITE,URINE NEGATIVE (NEGATIVE); PROTEIN,URINE DIPSTICK 2+ (NEGATIVE)
[2018-08-10 20:14] LABS: BILIRUBIN,URINE NEGATIVE (NEGATIVE); KETONES,URINE NEGATIVE (NEGATIVE); URINE UROBILINOGEN 0.2 mg/dL (0.2 - 1)
[2018-08-10 20:26] LABS: BACTERIA,URINE MODERATE /HPF; EPITHELIAL CELLS,URINE FEW /LPF
[2018-08-10 20:27] LABS: HYALINE CASTS 0-1 (0-1); MUCUS,URINE MODERATE (RARE)
[2018-08-10] MEDS ORDERED: SODIUM CHLORIDE FLUSH 10 ML SYR INJ PRN (21:00)
[2018-08-10 23:45] VITALS: BP 187/94
--- NOTE | 2018-08-10 23:45 | NUR ---
INITIAL ASSESSMENT COMPLETE, ORIENTED TO ROOM, IV INTACT, TELE ON PT, NO DISTRESS NOTED, CALL LIGHT IN REACH, VS STABLE, TOLD TO CALL FOR NEEDS
[2018-08-11 04:00] VITALS: BP 142/73
--- NOTE | 2018-08-11 06:45 | NUR ---
rounded with carpenter assistant nurse, patient aware of change and in no distress. call macias within reach and bed in lowest position
[2018-08-11 07:30] VITALS: BP 134/70
[2018-08-11 07:35] LABS: BASOPHILS % 0.7 % (0.0-1.0); EOSINOPHILS # (AUTO) 0.2 (0.0-0.4); EOSINOPHILS % 3.5 % (0.0-6.0); HEMATOCRIT 43.5 % (38.2-49.6); HEMOGLOBIN 14.9 g/dL (14.0-18.0); LYMPHOCYTES # (AUTO) 2.1 (1.0-3.2); LYMPHOCYTES % 38.2 % (18.0-39.1); MEAN CORPUSCULAR HEMOGLOBIN 32.6 pg (28-32); MEAN CORPUSCULAR HGB CONC 34.3 g/dL (31-35); MEAN CORPUSCULAR VOLUME 95.2 fL (81-99); MONOCYTES # (AUTO) 0.6 (0.2-0.8); MONOCYTES % 10.6 % (4.4-11.3); NEUTROPHILS # (AUTO) 2.5 (2.1-6.9); NEUTROPHILS % 46.8 % (38.7-80.0); PLATELET COUNT 141 x10e3/uL (140-360); RED BLOOD COUNT 4.57 x10e6/uL (4.3-5.7); RED CELL DISTRIBUTION WIDTH 12.5 % (11.7-14.4)
[2018-08-11 07:54] VITALS: BP 134/70
[2018-08-11 08:06] LABS: ALANINE AMINOTRANSFERASE 28 IU/L (0-55); ALBUMIN 3.2 g/dL (3.5-5.0); ALBUMIN/GLOBULIN RATIO 1.1 (0.8-2.0); ALKALINE PHOSPHATASE 55 IU/L (40-150); ANION GAP 12.3 mmol/L (8-16); BLOOD UREA NITROGEN 13 mg/dL (7-26); BUN/CREATININE RATIO 13 (6-25); CALCIUM 9.2 mg/dL (8.4-10.2); CARBON DIOXIDE 25 mmol/L (22-29); CHLORIDE 105 mmol/L (98-107); CHOL/HDL RATIO 3.7 (3.9-4.7); CHOLESTEROL 127 MD/DL (0-199); CREATININE, SERUM 0.97 mg/dL (0.72-1.25); EST GLOMERULAR FILTRATION RATE > 60 ML/MIN (60-); GLUCOSE 111 mg/dL (74-118); HDL CHOLESTEROL 34 MG/DL (40-60); LDL CHOLESTEROL 65 MG/DL (60-130); POTASSIUM 4.3 mmol/L (3.5-5.1); SODIUM 138 mmol/L (136-145); TRIGLYCERIDES 138 MG/DL (0-149)
[2018-08-11 08:14] LABS: CREATINE KINASE MB 0.6 ng/mL (0-5.0)
[2018-08-11 11:17] VITALS: BP 141/73
--- NOTE | 2018-08-11 12:14 | Consultation ---
DATE OF CONSULTATION: 08/11/2018 Cardiology Consultation REASON FOR CONSULTATION: PVCs. HISTORY OF PRESENT ILLNESS: This is a 73-year-old male with history of carotid artery stenosis status post left carotid endarterectomy, hypertension, and hyperlipidemia, who presents with complaints of shortness of breath. The patient denies any history of cardiac disease. The patient reports he was diagnosed with pneumonia a few months ago. He has been progressively more short of breath since that time. He states he has had dyspnea on exertion and is unable to lie flat due to shortness of breath and coughing for the last 3-4 months. He denies chest pain, palpitations, edema or PND. On evaluation in the ER, he was noted to have frequent ectopy for which Cardiology is consulted. REVIEW OF SYSTEMS: Negative except as per HPI. PAST MEDICAL HISTORY: 1. Carotid artery stenosis status post left carotid endarterectomy. 2. Hypertension. 3. Hyperlipidemia. PAST SURGICAL HISTORY: 1. Cholecystectomy. 2. Appendectomy. 3. Hernia surgery. 4. Carotid endarterectomy. ALLERGIES: PLEASE SEE EMR. MEDICATIONS: Please see medication list. SOCIAL HISTORY: He smokes cigars. He quit smoking cigarettes 25 years ago, but smoked 2-3 packs a day for 20 years. No drugs, but does drink alcohol occasionally. FAMILY HISTORY: Pertinent for brother who of myocardial infarction. PHYSICAL EXAMINATION: VITALS: Temperature 96.1 degrees, pulse 60, respiratory rate 18, blood pressure 134/70, and oxygen saturation 97% on room air. GENERAL: Well-developed, well-nourished man, in no acute distress. HEENT: Normocephalic, atraumatic. Pupils equal. No scleral icterus. NECK: Supple. No thyromegaly or cervical lymphadenopathy. No carotid bruits. LUNGS: Clear to auscultation bilaterally. No wheezes or crackles. CARDIOVASCULAR: Normal rate. Regular rhythm. No murmur. Normal S1, S2. ABDOMEN: Soft, nontender. EXTREMITIES: No edema. NEURO: Nonfocal exam. LABS: WBC 5.36, hemoglobin 14.9, hematocrit 43.5, platelets 141. Sodium 138, potassium 4.3, chloride 105, CO2 of 25, BUN 13, creatinine 0.97. Troponin 0.011. BNP 159.7. EKG; sinus bradycardia with frequent PVCs, right bundle-branch block. Chest x-ray, no acute cardiopulmonary abnormalities. IMPRESSION: 1. Frequent premature ventricular contractions. 2. Dyspnea. 3. Carotid artery disease status post left carotid endarterectomy. 4. Hypertension. 5. Hyperlipidemia. RECOMMENDATIONS: Trend cardiac enzymes to rule out myocardial infarction. Obtain echocardiogram. Keep the patient on telemetry. Given the patient's risk factors, ischemic evaluation is warranted with nuclear stress test, carotid Doppler to evaluate carotid artery disease. Resume home cardiac medications. Further recommendations pending test results. Thank you for this consult. We will continue to follow. Quita Coats MD ABS/MODL /[id number]
--- NOTE | 2018-08-11 12:42 | NUR ---
patient leaving unit via wheelchair to nuclear medicine, patient alert and oriented.
[2018-08-11] MEDS ORDERED: REGADENOSON 0.4 MG/5 ML SYR IV ONE (13:22)
--- NOTE | 2018-08-11 14:28 | NUR ---
patient returned to floor, alert and oriented. call macias within reach and bed in lowest position.
[2018-08-11 16:00] VITALS: BP 175/72
[2018-08-11 16:02] LABS: CREATINE KINASE MB 0.8 ng/mL (0-5.0)
--- NOTE | 2018-08-11 18:45 | NUR ---
rounded with biller nurse, patient aware of change. Call macias within reach and bed in lowest position.
--- NOTE | 2018-08-11 19:00 | NUR ---
received report from day nurse. patient is resting comfortably in bed. bed is in lowest position and call macias is within reach. will continue to monitor patient.
[2018-08-11 20:00] VITALS: BP 144/78
[2018-08-12] VITALS (16 sets, daily range): BP systolic 111–185; BP diastolic 58–98
--- NOTE | 2018-08-12 07:05 | NUR ---
report given to day nurse. patient is resting comfortably in bed. bed is in lowest position.
[2018-08-12] MEDS ORDERED: HEPARIN SOD (PORCINE) 1000 UNIT/ML 30ML ONE (08:55)
[2018-08-12] MEDS ORDERED: MIDAZOLAM HCL 2 MG/2 ML VIAL ONE (08:56)
[2018-08-12] MEDS ORDERED: HEPARIN SOD/SOD CHLORIDE 2,000 ML ONE (08:56)
[2018-08-12] MEDS ORDERED: VERAPAMIL HCL 2.5 MG/ML 2 ML VIAL ONE (08:56)
[2018-08-12] MEDS ORDERED: IOPAMIDOL 370 MG/ML 200 ML INFUS..BTL INJ ONE (08:56)
[2018-08-12] MEDS ORDERED: NITROGLYCERIN/D5W 200 MCG/ML 250 ML ONE (08:56)
[2018-08-12] MEDS ORDERED: LIDOCAINE HCL 2% LOCAL 20 ML VIAL ONE (08:56)
[2018-08-12] MEDS ORDERED: FENTANYL CITRATE/PF 100MCG/2 ML INJ ONE (08:56)
[2018-08-12] MEDS ORDERED: SODIUM CHLORIDE 0.9% 1000ML 1,000 ML ONE (08:56)
[2018-08-12] MEDS ORDERED: DIPHENHYDRAMINE HCL INJ 50 MG/ML VIAL ONE (11:53)
[2018-08-12] MEDS ORDERED: FAMOTIDINE 20 MG/2 ML VIAL IV ONE (11:53)
[2018-08-12] MEDS ORDERED: METHYLPREDNISOLONE SOD SUCC 125 MG/2ML VIAL ONE (11:53)
--- NOTE | 2018-08-12 12:45 | NUR ---
1245pm received report from PRANAY Dudley. [facility] . Dr Villanueva Multi vessel disease.Needs surgical consent Rt TRband aaproach Site w/o gross signs pain,pallor,pressure or dysrhythmia. 10cc in balloon volume
--- NOTE | 2018-08-12 13:11 | NUR ---
1311am Pt denies CP or SOB. Rt TR band titration initiate 10cc balloon (-2cc Positive 8cc.) Rt radial pulse present. No gross pain,pallor,pressure or dysrhythmia. Back to baseline orientation. Respiration shallow and regular 99% RA. Abdomen soft and non tender.Denies necessity to defecate or urinate. Rt Iv w/o s/s infiltration to iv controller at kvo rate. CD attached to chart After tr band off will transfer back to floor care. Po OJ given. Tolerated w/o c/o. Pt scheduled for surgical consult potential CABAG per MD referral Denies CP or SOB. To return to [facility] Rm 181, NSR No active bleeding or hematoma. ds/rn
--- NOTE | 2018-08-12 14:00 | NUR ---
1400 Transfer to floor care per bed Report to Jose PIRES aware MD awaiting surgical consult. s/p LHC 100% RCA needing CABAG per MD Dr Adrian informed me she wanted CD sent with pt. Copy on chart confirmed continue iv 75cchr till 1045pm. Iv site healthy no s/s infiltration. PT transfered with Zoll monitoring report to ekg tele-room and in place .No active sign of bleeding with stasis to Rt tr band site at 1300pm. Coban dressing with arm splint to stay on till tomorrow. Positive radial pulse .Void qs on arrival to room. Left pt in RN care. Side rails up ,call light at bedside ,bed in low position. Vs and ekg stable. No gross signs of pallor,pain,pressure issues. Denies CP or SOB. ds/rn
--- NOTE | 2018-08-12 16:17 | NUR ---
SOCIAL WORK INITIAL ASSESSMENT Weld Inspector to bedside to discuss plan of care with patient/family. CM/SW role and care transitions discussed. Anticipated discharge plan discussed along with duration of care. CM/SW discussed patients right to make decisions in care. CM/SW work hours given. Patient lives: IN HOUSE WITH NEPHEW Admit/Transfer: VIA ED POA/Emergency contact: DOLORES LEE [phone] Current/Previous Home Health: NONE PCP/Follow-up Care: NADIA Current/Previous DME: NONE Other Services: NONE Employment Status: RETIRED Areas of Concerns: NONE Referral Needs: POSSIBLE TRANSFER Education Needs: NA IMM/CHAN given and signed (if applicable): UPON ADMISSION Goal for discharge: TRANSFER TO [facility] CM/SW left business card at the bedside with contact information. Name and number was also written on the patients whiteboard. Patient verbalized understanding of discussion. CM will follow-up with ongoing discharge and transition of care needs.
--- NOTE | 2018-08-12 16:29 | NUR ---
ORDER RECEIVED FOR TRANSFER TO [facility]. CALL MADE TO [facility]. SPOKE Alexandra RAMIREZ IN THE TRANSFER CENTER. FAXED FS AND H&P TO [phone]. MOT INITIATED.
[2018-08-12] MEDS ORDERED: HEPARIN SOD (PORCINE) 5,000 UNIT/ML VIAL IV NR (19:30)
--- NOTE | 2018-08-12 19:40 | Progress Note ---
DATE: Cardiology Progress Note SUBJECTIVE: The patient is overall feeling well. Denies any typical angina or shortness of breath. OBJECTIVE: VITAL SIGNS: Temperature is 97.3, heart rate is 68, respirations are 18, blood pressure is 185/84, and oxygen saturation 98% on room air. GENERAL: Well appearing, well built, no apparent distress. CARDIOVASCULAR: Regular rate and rhythm. LUNGS: Clear to auscultation. ABDOMEN: Soft, nontender, nondistended. EXTREMITIES: No edema. LABORATORY DATA: Hemoglobin 14, creatinine 0.97. Troponins negative. Telemetry monitoring revealed normal sinus rhythm with PVCs. Echocardiogram showed ejection fraction, mildly reduced at 40% to 45%. Cardiac catheterization revealed significant left main, mid circumflex, and right coronary artery stenosis. IMPRESSION: 1. Mild systolic congestive heart failure. 2. Multivessel coronary artery disease. 3. Carotid artery disease, status post left carotid endarterectomy. 4. Hypertension. 5. Hyperlipidemia. RECOMMENDATIONS: The patient was found to have significant left main and left circumflex coronary lesion with a chronic total occlusion of the right coronary artery. Given his reduction in ejection fraction and multivessel coronary artery disease, the patient will benefit from coronary artery bypass graft surgery. The patient will need to be transferred to [facility] in the [facility] under Dr. Latricia Johnson. DO TANESHA Negrete/MODL /[id number]
[2018-08-12] MEDS ORDERED: HEPARIN 25,000U/0.45% NS 250ML 900 UNIT in Premix Bag 250 ML IV SCH (19:45)
--- NOTE | 2018-08-12 19:45 | NUR ---
SPOKE WITH PHARMACIST REGARDING INITIAL STARTING RATE FOR HEPARIN INFUSION. PHARMACIST STATES INITIAL STARTING RATE IS IN ACCORDANCE WITH HOSPITAL POLICY.
--- NOTE | 2018-08-12 21:31 | Operative Report ---
DATE OF PROCEDURE: SURGEON: Arnaldo Villanueva DO PROCEDURES PERFORMED: 1. Conscious sedation, 30 minutes. 2. Selective coronary angiography x2. 3. Left heart catheterization. PREPROCEDURE DIAGNOSIS: Abnormal stress test with mild congestive heart failure. POSTPROCEDURE DIAGNOSIS: Multivessel coronary artery disease. ESTIMATED BLOOD LOSS: Less than 20 mL. SPECIMENS REMOVED: None. PROCEDURE IN DETAIL: After informed consent was obtained, the patient was brought to the cardiac catheterization laboratory in a fasting and nonsedated state. Bilateral groins and right wrist were prepped and draped in the usual sterile fashion. A 2% lidocaine was infiltrated over the right wrist for local anesthesia. Using micropuncture needle, the right radial artery was accessed via the modified Seldinger technique and a 6-Ugandan glide sheath was placed. Next, diagnostic coronary angiography was performed using a TIG catheter. This was also used to enter the left ventricle. The patient tolerated the procedure well with no immediate complications, and transferred back to his room in stable condition. Hemostasis was achieved via TR band. PROCEDURE FINDINGS: 1. The distal left main has a 60% severe stenosis. 2. The left anterior descending coronary artery has a proximal mid 30% to 40% stenosis. 3. The left circumflex coronary artery has a significant 70% stenosis in the midportion. This vessel provides four obtuse marginal vessels, two of which are distal to the stenosis. 4. The right coronary artery is chronically occluded in the midportion and fills via collaterals from the left coronary system. 5. Left ventricular end-diastolic pressure is 19 mmHg with no aortic valve gradient present upon pullback. IMPRESSION: Multivessel coronary artery disease. RECOMMENDATIONS: Referred for bypass surgery. Arnaldo Villanueva DO BM/MODL /[id number]
--- NOTE | 2018-08-13 05:03 | Discharge Summary ---
HOSPITAL COURSE: Mr. Lala is a 73-year-old man with history of hypertension, history of pneumonia in May 2018, came to the emergency room with shortness of breath and cough. Chest x-ray was clear, but EKG shows several PVCs, so the patient was seen by creative services writer, had a Lexiscan nuclear stress test done yesterday, results are not available yet. PHYSICAL EXAMINATION: GENERAL: Today, he is awake and alert. VITAL SIGNS: Temperature is 96.8, blood pressure 111/58, respiratory rate is 19, and saturation 95%. HEART: Regular rate with some PVCs. LUNGS: Clear to auscultation. ABDOMEN: Soft. LABORATORY DATA: On the blood work, potassium 4.3, creatinine 0.97, glucose 111. White count 5.36, hemoglobin 14.9, hematocrit 43.5. Chest x-ray shows no acute findings. Lexiscan stress test and carotid Doppler, they are all pending. If the workup is negative, the patient probably will be able to go home if it is okay with creative services writer. ASSESSMENT: 1. Shortness of breath. 2. Frequent premature ventricular contractions. 3. Carotid artery disease, status post left carotid endarterectomy. 4. Hyperlipidemia. 5. Hypertension. PLAN: At the present time, if echocardiogram, carotid Doppler, and Lexiscan stress test are negative, the patient is going to be able to go home and if it is okay with creative services writer. Please see home medication reconciliation list. Upon discharge, the patient needs follow up with his PCP. All this was discussed with the patient. All questions were answered to satisfaction. MD CARROLL Prajapati/HANH /[id number]
--- NOTE | 2018-08-13 14:56 | Myoview Stress Test ---
DATE OF STUDY: 08/11/2018 09:28:00 Stress Test - Treadmill ONLY LEXISCAN NUCLEAR STRESS TEST INDICATION: Angina, abnormal stress test, and coronary artery disease. DESCRIPTION OF PROCEDURE: The patient was stressed using one minute intravenous infusion of Lexiscan. Rest and stress Myoview imaging was obtained. Resting heart rate 74 beats per minute. Resting blood pressure 125/71, resting electrocardiogram shows sinus rhythm, left ventricular hypertrophy with frequent PVCs. Following Lexiscan infusion, no chest pain. No arrhythmias. Rest images were normal. Stress images showed minor decrease in tracer uptake in the LV apex. Mildly reduced LV systolic function. CONCLUSIONS: 1. Abnormal Lexiscan nuclear stress test showing mild area of apical ischemia. 2. Mildly reduced LV ejection fraction with calculated ejection fraction of 44%. MD AMMY Downey/MODL /[id number]
== END 2018-08-13 00:15 | disposition other institution (70) ==
LOC: ER 15:31 → ERHOLD 20:58 → IMCU 23:30
PROVIDERS: ADMIT Internal Medicine; ATTEND Internal Medicine
DX: I11.0 Hypertensive heart disease with heart failure (principal); I50.20 Unspecified systolic (congestive) heart failure; R94.31 Abnormal electrocardiogram [ECG] [EKG]; E78.5 Hyperlipidemia, unspecified; Z82.49 Family history of ischemic heart disease and other diseases of the circulatory system; I49.3 Ventricular premature depolarization; Z87.891 Personal history of nicotine dependence; I65.22 Occlusion and stenosis of left carotid artery; R06.00 Dyspnea, unspecified; I25.10 Atherosclerotic heart disease of native coronary artery without angina pectoris; I25.82 Chronic total occlusion of coronary artery; Z91.013 Allergy to seafood
CPT/HCPCS: 36415 ×3; 71045; 78452; 80053 ×2; 80061; 81001; 82550 ×2; 82553 ×2; 82948; 83880; 84484 ×2; 85025 ×2; 85610; 85730; 93005; 93017; 93306; 93458; 93880; 99284; A9502; C1769 ×2; C1887; G0378 ×3; J1200; J1644 ×3; J2001; J2250; J2785; J2930; J7030; Q9967